=== PATIENT | male | born 1935 | race Caucasian/White ===

== ENCOUNTER 2016-12-14 11:16 | Inpatient (IN) | payer MEDICARE, BC ==
--- NOTE | 2016-12-09 10:04 | MH ---
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 PAST MEDICAL HISTORY 1. Triple bypass performed in 2010 along with a mitral valve replacement. 2. History of throat squamous cell carcinoma in 2011. 3. Tonsillectomy. 4. He has had several minor surgeries cancelled due to hypertension. 5. History of gout. 6. Hypertension. 7. Throat cancer radiation and chemotherapy 2011. MEDICATIONS Allopurinol twice daily. His primary care physician has taken him off and placed him back on hypertension medicine. Currently he is off of it. SOCIAL HISTORY He is retired, drinks alcohol occasionally, does not use tobacco. REVIEW OF SYSTEMS HEAD: No history of headaches. He does have occasional dizziness. No injury or seizure disorders. EYES: No history of bleeding, obstruction or discharge. He wears reading glasses. NOSE: No history of bleeding, obstruction or discharge. MOUTH: He has inability to chew with pathologic fracture of the left body of the mandible. THROAT: No history of hoarseness, soreness, thyroid disease, lymph nodes or buccal or general glandular enlargement. RESPIRATORY: No history of tuberculosis, shortness of breath, cough, COPD, asthma or sleep apnea. CARDIOVASCULAR: No history of pericardial pain. He does have a history of hypertension. He does have a significant history of heart murmur. He does not report any shortness of breath on exertion, edema, phlebitis or rheumatic fever. He had bypass surgery and mitral valve replacement in 2010. GASTROINTESTINAL: No gallbladder disease or peptic ulcer disease. GENITOURINARY: No urinary tract infections or kidney disease. MUSCULOSKELETAL: No pain, limitation of movement or muscular weakness. ENDOCRINE: No history of diabetes, hormone therapy, growth abnormality. HEMATOLOGIC: No history of anemia, bleeding tendencies, Rh incompatibility. Has no history of transfusion. He does report bruising easily. NEUROLOGIC: No sensory or motor disturbances. PHYSICAL EXAMINATION GENERAL: An alert and oriented male. VITAL SIGNS: He is 5 feet 7 inches, weighs 130 pounds. Blood pressure is 215/94. O2 sat is 100% on room air. Pulse 74 and regular. HEAD: Normocephalic. EYES: EOMs intact. PERRLA. NOSE: Septum in the midline. MOUTH: Marked deviation of his mandible to the left. 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 He does not currently have a cutaneous fistula but intraorally he does. History of Pseudomonas drainage from his intraoral opening. NECK: Supple. No thyroid enlargement. SKIN: The skin over the left side of his face is indurated status post radiation. CHEST: Clear to auscultation. He has a grade 3/6 systolic ejection murmur heard best in the mitral area. EXTREMITIES: Peripheral pulses are full and equal throughout. ABDOMEN: Soft. There are no masses or organomegaly present. He has a midline scar in an area where a feeding tube had been placed on the left abdominal wall. NEUROLOGIC: Cranial nerves II-XII intact with the exception of the third division of the fifth cranial nerve on the left. This has occurred along with osteoradionecrosis. Deep tendon reflexes are symmetric and physiologic. ASSESSMENT AND PLAN The patient has been informed of the need for resection of the left body of the mandible and placement of a locking reconstruction plate. The patient understands and accepts the treatment plan. SHERIE Banks /9:40 AM /9:54 AM
[~2016-12-14] VITALS: Ht 170.2 cm; Wt 63.0 kg
[2016-12-14] MEDS ORDERED: ONDANSETRON HCL 4 MG/2 ML VIAL IV PUSH ONE (12:00)
[2016-12-14] MEDS ORDERED: ePHEDrine/NS 25 MG/5 ML SYR IV ONE (12:00)
[2016-12-14] MEDS ORDERED: LACTATED RINGER'S 1000 ML INJ 1,000 ML IV ONE (12:00)
[2016-12-14] MEDS ORDERED: PROPOFOL 200 MG/20 ML AMP IV ONE (12:00)
[2016-12-14 12:30] VITALS: BP 198/80; PULSE 75; RESP 18; TEMP 98.1; O2SAT 100
[2016-12-14] MEDS ORDERED: METO50TA PO (12:39)
[2016-12-14] MEDS ORDERED: POVIDONE IODINE 5% (ANTISEPSIS KIT) 4 APPLICATIONS EACH NARE PRN (13:00)
[2016-12-14] MEDS ORDERED: ceFAZolin 1,000 MG/NS 100 ML IV SCH ×2 (13:00)
[2016-12-14] MEDS ORDERED: SODIUM CHLORID 0.9% 500 ML IV PRN (13:00)
[2016-12-14] MEDS ORDERED: LACTATED RINGER'S 1000 ML IV PRN (13:00)
[2016-12-14] MEDS ORDERED: INSULIN HUMAN REGULAR 1,000 UNITS/10 ML VIAL SQ PRN (13:00)
[2016-12-14] MEDS ORDERED: CHLORHEXIDINE GLUCONATE 2 % 1 PACK (2 CLOTHS) TOPICAL PRN (13:00)
[2016-12-14] MEDS ORDERED: METOPROLOL TARTRATE 25 MG TAB PO PRN (13:00)
[2016-12-14] MEDS ORDERED: LIDOCAINE 1%/EPINEPHrine 1:100,000 SOLN 20 ML VIAL ONE (13:32)
[2016-12-14] MEDS ORDERED: methylPREDNISolone SOD SUCC 125 MG/2 ML VIAL ONE (13:32)
[2016-12-14] MEDS ORDERED: BACITRACIN TOP OINT 15 GM TUBE ONE (13:32)
[2016-12-14] MEDS ORDERED: THROMBIN (TOPICAL) 5,000 UNIT VIAL ONE (13:32)
[2016-12-14] MEDS ORDERED: CHLORHEXIDINE GLUCONATE 0.12% 15 ML CUP ONE (13:36)
[2016-12-14] MEDS ORDERED: MICROFIBRILLAR COLLAGEN HEMOSTAT 70 X 35 MM BANDAGE ONE (14:52)
[2016-12-14] MEDS ORDERED: fentaNYL CITRATE 250 MCG/5 ML AMP ONE (17:02)
[2016-12-14] MEDS ORDERED: *LABETALOL HCL 100 MG/20 ML VIAL PERIprocedural Use ONLY ONE (17:08)
[2016-12-14] MEDS ORDERED: cloNIDine HCL 0.1 MG TAB ONE (17:17)
[2016-12-14] MEDS ORDERED: *morphine SULFATE 8 MG/ML PERIprocedure ONLY ONE ×2 (17:18→18:43)
--- NOTE | 2016-12-14 17:21 | PD.CONS ---
[facility] Requested By Reason for Consult medical management Primary Care Physician Tarun Mari MD Diagnoses: History of Present Illness patient is a 81 y/o male with history of CAD, hypertension, throat cancer with osteoradionecrosis complete deterioration of the left body of the mandible for which he underwent surgical repair. at the time of my evaluation he was in no acute distress. denies any chest pain, dizziness or headache. however his BP was noted to be significantly elevated at the time. patient was seen with the RN at the bedside. Review of Systems Constitutional: DENIES: Fever, Weight loss, Chills, Night Sweats Eyes: DENIES: Blurred vision, Diplopia, Vision loss, Double Vision Ears, nose, mouth, throat: DENIES: Tinnitus, Vertigo, Throat pain, Epistaxis Respiratory: DENIES: Apneas, Cough, Snoring, Wheezing, Hemoptysis, Sputum production, Shortness of breath Cardiovascular: DENIES: Chest pain, Palpitations, Syncope, Dyspnea on Exertion , PND, Lower Extremity Edema, Orthopnea, Claudication Gastrointestinal: DENIES: Abdominal pain, Black stools, Bloody stools, Constipation, Diarrhea, Nausea, Vomiting, Difficulty Swallowing, Anorexia Genitourinary: DENIES: Urinary frequency, Urgency, Hematuria, Dysuria Musculoskeletal: DENIES: Joint pain, Muscle aches, Stiffness, Joint Swelling Integumentary: DENIES: Rash Neurologic: DENIES: Abnormal gait, Headache, Localized weakness, Paresthesias, Seizures, Speech Problems, Tremor, Poor Balance Psychiatric: DENIES: Anxiety, Confusion, Mood changes, Depression, Hallucinations, Agitation, Suicidal Ideation, Homicidal Ideation, Delusions Past Family Social History Allergies: Coded Allergies: No Known Allergies (Unverified , 12/14/16) Past Medical History CAD mitral valve repair hypertension gout throat cancer Past Surgical History mitral valve surgery Reported Medications metoprolol Active Ordered Medications Current Medications Lactated Ringer's 1,000 ml @ 30 mls/hr Q24H PRN IV SEE LABEL COMMENTS Last administered on 12/14/16t 12:45; Start 12/14/16 at 13:00; Stop 12/17/16 at 12:59 Sodium Chloride (NS 500 ml Inj) 500 ml @ 30 mls/hr [id number] PRN IV SEE LABEL COMMENTS; Start 12/14/16 at 13:00; Stop 12/17/16 at 12:59 Metoprolol Tartrate (Lopressor) 25 mg BAND MAKER PRN PO SEE LABEL COMMENTS; Start 12/14/16 at 13:00; Stop 12/17/16 at 12:59 Povidone Iodine (Betadine 5% Antisepsis Kit) 1 applic BAND MAKER PRN EACH NARE SEE LABEL COMMENTS; Start 12/14/16 at 13:00; Stop 12/17/16 at 12:59 Chlorhexidine Gluconate (Chlorhexidine 2% Cloth) 3 pack BAND MAKER PRN TOPICAL SEE LABEL COMMENTS Last administered on 12/14/16 11:30; Start 12/14/16 at 13:00 ; Stop 12/17/16 at 12:59 Insulin Human Regular See Protocol Table ... BAND MAKER PRN SQ SEE PROTOCOL TABLE ; Start 12/14/16 at 13:00; Stop 12/17/16 at 12:59 Cefazolin Sodium/ Sodium Chloride (Ancef Inj/NS Inj) 100 ml @ 200 mls/hr BAND MAKER IV Last administered on 12/14/16 13:13; Start 12/14/16 at 13:00; Stop at 12:59 Thrombin (Thrombin Top Soln) 10,000 units STK-MED ONCE .ROUTE Last administered on 12/14/16 14:12; Start 12/14/16 at 13:32; Stop 12/14/16 at 13:33 ; Status DC Methylprednisolone Sodium Succinate (SoluMEDROL INJ) 125 mg STK-MED ONCE .ROUTE ; Start 12/14/16 at 13:32; Stop 12/14/16 at 13:33; Status DC Bacitracin (Baciguent Oint) 15 applic STK-MED ONCE .ROUTE Last administered on 12/14/16 16:31; Start 12/14/16 at 13:32; Stop 12/14/16 at 13:33; Status DC Lidocaine/ Epinephrine (Xylocaine-Epi 1%-1:100,000 Inj) 40 ml STK-MED ONCE .ROUTE Last administered on 12/14/16 14:12; Start 12/14/16 at 13:32; Stop at 13:33; Status DC Chlorhexidine Gluconate (Peridex 0.12% Liq) 45 ml STK-MED ONCE .ROUTE Last administered on 12/14/16t 16:00; Start 12/14/16 at 13:36; Stop 12/14/16 at 13:37 ; Status DC Microfibriller Collagen Hemostat (Avitene Bandage) 1 bandage STK-MED ONCE .ROUTE ; Start 12/14/16 at 14:52; Stop 12/14/16 at 14:53; Status DC Fentanyl Citrate (fentaNYL INJ) 500 mcg STK-MED ONCE .ROUTE ; Start 12/14/16 at 17:02; Stop 12/14/16 at 17:03; Status DC Labetalol HCl (*TRANDATE INJ PERIprocedural Use ONLY) 100 mg STK-MED ONCE .ROUTE ; Start 12/14/16 at 17:08; Stop 12/14/16 at 17:09; Status DC Clonidine (Catapres) 0.1 mg STK-MED ONCE .ROUTE ; Start 12/14/16 at 17:17; Stop 12/14/16 at 17:18; Status DC Family History not relevant to this consult. Social History doesn't smoke.drinks occasionally. Physical Exam Vital Signs Vital Signs Date Time Temp Pulse Resp B/P Pulse Ox O2 Delivery O2 Flow Rate FiO2 12/14/16 12:30 98.1 75 18 198/80 100 Physical Exam GENERAL: This is a well-nourished, well-developed patient, in no apparent distress. SKIN: No rashes, ecchymoses or lesions. Cool and dry. HEAD: covered with clean dressing. EYES: Pupils equal round and reactive. Extraocular motions intact. No scleral icterus. No injection or drainage. ENT: Nose without bleeding, purulent drainage or septal hematoma. Throat without erythema, tonsillar hypertrophy or exudate. Uvula midline. Airway patent. NECK: Trachea midline. No JVD or lymphadenopathy. Supple, nontender, no meningeal signs. CARDIOVASCULAR: Regular rate and rhythm without murmurs, gallops, or rubs. RESPIRATORY: Clear to auscultation. Breath sounds equal bilaterally. No wheezes , rales, or rhonchi. GASTROINTESTINAL: Abdomen soft, non-tender, nondistended. No hepato-splenomegaly , or palpable masses. No guarding. MUSCULOSKELETAL: Extremities without clubbing, cyanosis, or edema. No joint tenderness, effusion, or edema noted. No calf tenderness. Negative Homans sign bilaterally. NEUROLOGICAL: Awake and alert. Cranial nerves II through XII intact. Motor and sensory grossly within normal limits. Five out of 5 muscle strength in all muscle groups. Normal speech. Assessment and Plan Assessment and Plan A/P - osteoradionecrosis of the left mandible- s/p surgical repair continue with pain control- management per facial surgery -hypertensive urgency- received a dose of clonidine and labetalol- with some improvement resumed metoprolol- will add vasotec prn- will monitor and adjust the regimen as needed. -CAD/ s/p mitral valve repair- stable- f/u as outpatient thank you for the consult. Discussed Condition With the patient and RN. . Sunitha Hobson MD Dec 14, 2016 17:21
[2016-12-14] MEDS ORDERED: ENALAPRILAT 1.25 MG/ML VIAL ONE (17:31)
[2016-12-14] MEDS ORDERED: ENALAPRILAT 1.25 MG/ML VIAL IV PUSH PRN (18:00)
[2016-12-14] MEDS ORDERED: DO NOT ADM ANY ANTICOAGULANT DRUGS PRN (18:15)
[2016-12-14] MEDS ORDERED: MORPHINE SULFATE 4 MG/ML INJ IV PRN (18:15)
[2016-12-14] MEDS: DEXT 5%-NACL 0.45% 1000 ML INJ 1,000 ML IV SCH (18:15)
[2016-12-14] MEDS ORDERED: niCARdipine INJ 25 MG in SODIUM CHLOR 0.9% 250 ML INJ 250 ML IV SCH (19:00)
[2016-12-15] MEDS: DEXT 5%-NACL 0.45% 1000 ML INJ 1,000 ML IV SCH ×3 (02:35→21:58)
[2016-12-15] MEDS: ALLOPURINOL 300 MG TAB PO SCH (08:44)
[2016-12-15] MEDS: METOPROLOL SUCCINATE 25 MG EXTENDED RELEASE TAB PO SCH (08:45)
[2016-12-15 09:46] VITALS: BP 159/67; PULSE 64; RESP 17; TEMP 95.5; O2SAT 98
--- NOTE | 2016-12-15 11:24 | HHI.PR ---
Subjective Remarks resting comfortably with no distress. no chest pain or headache. BP has much improved. d/w the RN and no acute issues over night. Objective Vitals Vital Signs Date Time Temp Pulse Resp B/P Pulse Ox O2 Delivery O2 Flow Rate FiO2 12/15/16 09:46 95.5 64 17 159/67 98 12/15/16 09:30 97.4 Room Air 12/15/16 09:00 74 20 163/70 99 Room Air 12/15/16 07:00 97.5 98 20 173/81 99 Room Air 12/15/16 06:00 67 16 163/75 98 Room Air 12/15/16 04:15 70 18 155/72 98 Room Air 12/15/16 04:00 74 16 168/74 98 Room Air 12/15/16 03:16 69 16 158/94 97 Room Air 12/15/16 03:00 66 16 161/77 97 Room Air 12/15/16 02:00 96.9 65 20 139/72 97 Room Air 12/15/16 01:00 74 15 124/65 98 12/15/16 00:00 71 17 128/62 94 Nasal Cannula 2 12/14/16 23:00 72 16 138/65 95 Nasal Cannula 2 12/14/16 22:00 75 17 134/74 95 Nasal Cannula 2 12/14/16 21:00 78 15 130/62 97 Nasal Cannula 2 12/14/16 20:30 81 17 151/70 97 Nasal Cannula 2 12/14/16 20:15 98.2 79 17 146/67 94 Room Air 12/14/16 20:00 81 17 153/74 94 Room Air 12/14/16 19:45 82 17 156/72 98 Nasal Cannula 2 12/14/16 19:30 79 17 165/72 96 Nasal Cannula 2 12/14/16 19:15 77 17 202/94 97 Nasal Cannula 2 12/14/16 19:00 79 17 217/95 97 Nasal Cannula 2 12/14/16 18:45 78 16 198/96 97 Nasal Cannula 2 12/14/16 18:30 79 16 216/91 98 Nasal Cannula 2 12/14/16 18:15 77 16 188/91 97 Nasal Cannula 2 12/14/16 17:58 74 16 211/95 100 Nasal Cannula 2 12/14/16 17:45 79 15 189/86 100 Nasal Cannula 2 12/14/16 17:30 75 15 209/89 100 Nasal Cannula 2 12/14/16 17:15 79 17 100 Nasal Cannula 2 12/14/16 17:06 80 17 223/93 100 Nasal Cannula 3 12/14/16 17:00 78 17 215/98 100 Nasal Cannula 3 12/14/16 16:56 85 17 218/99 100 Nasal Cannula 3 12/14/16 16:50 96.7 92 16 231/95 100 Nasal Cannula 3 12/14/16 12:30 98.1 75 18 198/80 100 I/O 12/14/16 12/14/16 12/14/16 12/15/16 12/15/16 12/15/16 06:59 14:59 22:59 06:59 14:59 22:59 Intake Total 2640 ml 820 ml 754 ml Output Total 1400 ml 560 ml 200 ml Balance 1240 ml 260 ml 554 ml Intake Oral 240 ml IV Total 440 ml 820 ml 514 ml Other 2200 ml Output Urine Total 1150 ml 500 ml 200 ml Drainage Total 50 ml 60 ml 0 ml Estimated Blood Loss 200 ml Objective Remarks GENERAL: This is a well-nourished, well-developed patient, in no apparent distress. CARDIOVASCULAR: Regular rate and regular rhythm without murmurs, gallops, or rubs. RESPIRATORY: Clear to auscultation. Breath sounds equal bilaterally. No wheezes , rales, or rhonchi. GASTROINTESTINAL: Abdomen soft, non-tender, nondistended. Normal, active bowel sounds MUSCULOSKELETAL: Extremities without clubbing, cyanosis, or edema. NEURO: Alert & Oriented x4 to person, place, time, situation. Moves all ext x4 Medications and IVs Current Medications Lactated Ringer's 1,000 ml @ 30 mls/hr Q24H PRN IV SEE LABEL COMMENTS Last administered on 12/14/16t 12:45; Start 12/14/16 at 13:00; Stop 12/14/16 at 18:04 ; Status DC Sodium Chloride (NS 500 ml Inj) 500 ml @ 30 mls/hr [id number] PRN IV SEE LABEL COMMENTS; Start 12/14/16 at 13:00; Stop 12/14/16 at 18:04; Status DC Metoprolol Tartrate (Lopressor) 25 mg NEEDLE CONTROL CHENILLER PRN PO SEE LABEL COMMENTS; Start 12/14/16 at 13:00; Stop 12/14/16 at 18:04; Status DC Povidone Iodine (Betadine 5% Antisepsis Kit) 1 applic NEEDLE CONTROL CHENILLER PRN EACH NARE SEE LABEL COMMENTS; Start 12/14/16 at 13:00; Stop 12/14/16 at 18:04; Status DC Chlorhexidine Gluconate (Chlorhexidine 2% Cloth) 3 pack NEEDLE CONTROL CHENILLER PRN TOPICAL SEE LABEL COMMENTS Last administered on 12/14/16 11:30; Start 12/14/16 at 13:00 ; Stop 12/14/16 at 18:04; Status DC Insulin Human Regular See Protocol Table ... NEEDLE CONTROL CHENILLER PRN SQ SEE PROTOCOL TABLE ; Start 12/14/16 at 13:00; Stop 12/14/16 at 18:04; Status DC Cefazolin Sodium/ Sodium Chloride (Ancef Inj/NS Inj) 100 ml @ 200 mls/hr NEEDLE CONTROL CHENILLER IV Last administered on 12/14/16 13:13; Start 12/14/16 at 13:00; Stop at 18:04; Status DC Thrombin (Thrombin Top Soln) 10,000 units STK-MED ONCE .ROUTE Last administered on 12/14/16 14:12; Start 12/14/16 at 13:32; Stop 12/14/16 at 13:33 ; Status DC Methylprednisolone Sodium Succinate (SoluMEDROL INJ) 125 mg STK-MED ONCE .ROUTE ; Start 12/14/16 at 13:32; Stop 12/14/16 at 13:33; Status DC Bacitracin (Baciguent Oint) 15 applic STK-MED ONCE .ROUTE Last administered on 12/14/16 16:31; Start 12/14/16 at 13:32; Stop 12/14/16 at 13:33; Status DC Lidocaine/ Epinephrine (Xylocaine-Epi 1%-1:100,000 Inj) 40 ml STK-MED ONCE .ROUTE Last administered on 12/14/16 14:12; Start 12/14/16 at 13:32; Stop at 13:33; Status DC Chlorhexidine Gluconate (Peridex 0.12% Liq) 45 ml STK-MED ONCE .ROUTE Last administered on 12/14/16 16:00; Start 12/14/16 at 13:36; Stop 12/14/16 at 13:37 ; Status DC Microfibriller Collagen Hemostat (Avitene Bandage) 1 bandage STK-MED ONCE .ROUTE ; Start 12/14/16 at 14:52; Stop 12/14/16 at 14:53; Status DC Fentanyl Citrate (fentaNYL INJ) 500 mcg STK-MED ONCE .ROUTE ; Start 12/14/16 at 17:02; Stop 12/14/16 at 17:03; Status DC Labetalol HCl (*TRANDATE INJ PERIprocedural Use ONLY) 100 mg STK-MED ONCE .ROUTE Last administered on 12/14/16 17:08; Start 12/14/16 at 17:08; Stop at 17:09; Status DC Clonidine (Catapres) 0.1 mg STK-MED ONCE .ROUTE Last administered on 12/14/16 17:20; Start 12/14/16 at 17:17; Stop 12/14/16 at 17:18; Status DC Morphine Sulfate (*morphine INJ PERIprocedure ONLY) 8 mg STK-MED ONCE .ROUTE Last administered on 12/14/16 17:19; Start 12/14/16 at 17:18; Stop 12/14/16 at 17:19; Status DC Enalaprilat (Vasotec Inj) 1.25 mg Q8H PRN IV PUSH SBP> OR = 180, DBP> OR = 100 ; Start 12/14/16 at 18:00; Stop 12/14/16 at 18:04; Status DC Enalaprilat (Vasotec Inj) 1.25 mg STK-MED ONCE .ROUTE Last administered on 17:31; Start 12/14/16 at 17:31; Stop 12/14/16 at 18:52; Status DC Miscellaneous Information ALL NURSING DEPARTME... UNSCH PRN .XX SEE LABEL COMMENTS; Start 12/14/16 at 18:15; Stop 12/15/16 at 18:14 Dextrose/Sodium Chloride (D5W-1/2 NS 1000 ml Inj) 1,000 ml @ 120 mls/hr Q8H20M IV Last administered on 12/15/16 02:35; Start 12/14/16 at 18:15 Metoprolol Succinate (Toprol Xl) 25 mg DAILY PO Last administered on 12/15/16 08:45; Start 12/15/16 at 09:00 Allopurinol (Zyloprim) 300 mg DAILY PO ; Start 12/15/16 at 09:00 Morphine Sulfate (Morphine Inj) 2 mg Q3H PRN IV PAIN 6-10; Start 12/14/16 at 18 :15 Oxycodone HCl (Roxicodone) 7.5 mg Q4H PRN PO PAIN 1-5; Start 12/14/16 at 18:15 Morphine Sulfate 8 mg 8 mg STK-MED ONCE .ROUTE Last administered on 12/14/16 18:44; Start 12/14/16 at 18:43; Stop 12/14/16 at 18:44; Status DC Nicardipine HCl/ Sodium Chloride (Cardene Inj/NS 250 ml Inj) 260 ml @ 0 mls/hr TITRATE IV Last administered on 12/14/16 19:21; Start 12/14/16 at 19:00 Nicardipine HCl (Cardene Inj) 25 mg STK-MED ONCE .ROUTE ; Start 12/14/16 at 19: 07; Stop 12/14/16 at 19:08; Status DC A/P Assessment and Plan A/P - osteoradionecrosis of the left mandible- s/p surgical repair continue with pain control- management per facial surgery -hypertensive urgency-has resolved- off the Nicardipine drip since last night. resumed metoprolol- vasotec prn- will monitor and adjust the regimen as needed. -CAD/ s/p mitral valve repair- stable- f/u as outpatient Sunitha Hobson MD Dec 15, 2016 11:24
[2016-12-15] MEDS ORDERED: ENALAPRILAT 1.25 MG/ML VIAL IV PUSH PRN (11:30)
[2016-12-15 12:00] VITALS: BP 152/67; PULSE 78; RESP 17; TEMP 95.4; O2SAT 91
[2016-12-15 16:00] VITALS: BP 105/51; PULSE 69; RESP 17; TEMP 95.6; O2SAT 96
[2016-12-15 19:25] VITALS: O2SAT 96
[2016-12-15 20:00] VITALS: BP 106/59; PULSE 61; RESP 18; TEMP 97.8; O2SAT 96
[2016-12-16] VITALS: BP 132/60; PULSE 68; RESP 18; TEMP 96.6; O2SAT 95
[2016-12-16] MEDS: DEXT 5%-NACL 0.45% 1000 ML INJ 1,000 ML IV SCH ×3 (03:33→20:15)
[2016-12-16 08:00] VITALS: BP 121/57; PULSE 58; RESP 12; TEMP 96.6; O2SAT 96
[2016-12-16 08:22] VITALS: O2SAT 95
[2016-12-16] MEDS: METOPROLOL SUCCINATE 25 MG EXTENDED RELEASE TAB PO SCH (09:00)
--- NOTE | 2016-12-16 10:02 | HHI.PR ---
Subjective Remarks resting comfortably with no distress. pain is controlled. BP has much improved. Objective Vitals Vital Signs Date Time Temp Pulse Resp B/P Pulse Ox O2 Delivery O2 Flow Rate FiO2 12/16/16 08:00 96.6 58 12 121/57 96 12/16/16 04:00 Room Air 12/16/16 00:00 96.6 68 18 132/60 95 12/16/16 00:00 Room Air 12/15/16 20:00 Room Air 12/15/16 20:00 97.8 61 18 106/59 96 12/15/16 19:25 96 21 12/15/16 16:00 95.6 69 17 105/51 96 12/15/16 12:00 95.4 78 17 152/67 91 12/15/16 12:00 95.4 78 17 152/67 91 I/O 12/15/16 12/15/16 12/15/16 12/16/16 12/16/16 12/16/16 07:00 15:00 23:00 07:00 15:00 23:00 Intake Total 820 ml 1829 ml 925 ml 1001 ml Output Total 560 ml 715 ml 470 ml 660 ml Balance 260 ml 1114 ml 455 ml 341 ml Intake Oral 720 ml IV Total 820 ml 1109 ml 925 ml 1001 ml Output Urine Total 500 ml 675 ml 450 ml 650 ml Drainage Total 60 ml 40 ml 20 ml 10 ml # Bowel Movements 0 0 Objective Remarks GENERAL: This is a well-nourished, well-developed patient, in no apparent distress. CARDIOVASCULAR: Regular rate and regular rhythm without murmurs, gallops, or rubs. RESPIRATORY: Clear to auscultation. Breath sounds equal bilaterally. No wheezes , rales, or rhonchi. GASTROINTESTINAL: Abdomen soft, non-tender, nondistended. Normal, active bowel sounds MUSCULOSKELETAL: Extremities without clubbing, cyanosis, or edema. NEURO: Alert & Oriented x4 to person, place, time, situation. Moves all ext x4 Medications and IVs Current Medications Lactated Ringer's 1,000 ml @ 30 mls/hr Q24H PRN IV SEE LABEL COMMENTS Last administered on 12/14/16t 12:45; Start 12/14/16 at 13:00; Stop 12/14/16 at 18:04 ; Status DC Sodium Chloride (NS 500 ml Inj) 500 ml @ 30 mls/hr [id number] PRN IV SEE LABEL COMMENTS; Start 12/14/16 at 13:00; Stop 12/14/16 at 18:04; Status DC Metoprolol Tartrate (Lopressor) 25 mg SKIN THERAPIST PRN PO SEE LABEL COMMENTS; Start 12/14/16 at 13:00; Stop 12/14/16 at 18:04; Status DC Povidone Iodine (Betadine 5% Antisepsis Kit) 1 applic SKIN THERAPIST PRN EACH NARE SEE LABEL COMMENTS; Start 12/14/16 at 13:00; Stop 12/14/16 at 18:04; Status DC Chlorhexidine Gluconate (Chlorhexidine 2% Cloth) 3 pack SKIN THERAPIST PRN TOPICAL SEE LABEL COMMENTS Last administered on 12/14/16 11:30; Start 12/14/16 at 13:00 ; Stop 12/14/16 at 18:04; Status DC Insulin Human Regular See Protocol Table ... SKIN THERAPIST PRN SQ SEE PROTOCOL TABLE ; Start 12/14/16 at 13:00; Stop 12/14/16 at 18:04; Status DC Cefazolin Sodium/ Sodium Chloride (Ancef Inj/NS Inj) 100 ml @ 200 mls/hr SKIN THERAPIST IV Last administered on 12/14/16 13:13; Start 12/14/16 at 13:00; Stop at 18:04; Status DC Thrombin (Thrombin Top Soln) 10,000 units STK-MED ONCE .ROUTE Last administered on 12/14/16 14:12; Start 12/14/16 at 13:32; Stop 12/14/16 at 13:33 ; Status DC Methylprednisolone Sodium Succinate (SoluMEDROL INJ) 125 mg STK-MED ONCE .ROUTE ; Start 12/14/16 at 13:32; Stop 12/14/16 at 13:33; Status DC Bacitracin (Baciguent Oint) 15 applic STK-MED ONCE .ROUTE Last administered on 12/14/16 16:31; Start 12/14/16 at 13:32; Stop 12/14/16 at 13:33; Status DC Lidocaine/ Epinephrine (Xylocaine-Epi 1%-1:100,000 Inj) 40 ml STK-MED ONCE .ROUTE Last administered on 12/14/16 14:12; Start 12/14/16 at 13:32; Stop at 13:33; Status DC Chlorhexidine Gluconate (Peridex 0.12% Liq) 45 ml STK-MED ONCE .ROUTE Last administered on 12/14/16 16:00; Start 12/14/16 at 13:36; Stop 12/14/16 at 13:37 ; Status DC Microfibriller Collagen Hemostat (Avitene Bandage) 1 bandage STK-MED ONCE .ROUTE ; Start 12/14/16 at 14:52; Stop 12/14/16 at 14:53; Status DC Fentanyl Citrate (fentaNYL INJ) 500 mcg STK-MED ONCE .ROUTE ; Start 12/14/16 at 17:02; Stop 12/14/16 at 17:03; Status DC Labetalol HCl (*TRANDATE INJ PERIprocedural Use ONLY) 100 mg STK-MED ONCE .ROUTE Last administered on 12/14/16 17:08; Start 12/14/16 at 17:08; Stop at 17:09; Status DC Clonidine (Catapres) 0.1 mg STK-MED ONCE .ROUTE Last administered on 12/14/16 17:20; Start 12/14/16 at 17:17; Stop 12/14/16 at 17:18; Status DC Morphine Sulfate (*morphine INJ PERIprocedure ONLY) 8 mg STK-MED ONCE .ROUTE Last administered on 12/14/16 17:19; Start 12/14/16 at 17:18; Stop 12/14/16 at 17:19; Status DC Enalaprilat (Vasotec Inj) 1.25 mg Q8H PRN IV PUSH SBP> OR = 180, DBP> OR = 100 ; Start 12/14/16 at 18:00; Stop 12/14/16 at 18:04; Status DC Enalaprilat (Vasotec Inj) 1.25 mg STK-MED ONCE .ROUTE Last administered on 17:31; Start 12/14/16 at 17:31; Stop 12/14/16 at 18:52; Status DC Miscellaneous Information ALL NURSING DEPARTME... UNSCH PRN .XX SEE LABEL COMMENTS; Start 12/14/16 at 18:15; Stop 12/15/16 at 18:14; Status DC Dextrose/Sodium Chloride (D5W-1/2 NS 1000 ml Inj) 1,000 ml @ 120 mls/hr Q8H20M IV Last administered on 12/16/16 03:33; Start 12/14/16 at 18:15 Metoprolol Succinate (Toprol Xl) 25 mg DAILY PO Last administered on 12/15/16 08:45; Start 12/15/16 at 09:00 Allopurinol (Zyloprim) 300 mg DAILY PO ; Start 12/15/16 at 09:00 Morphine Sulfate (Morphine Inj) 2 mg Q3H PRN IV PAIN 6-10; Start 12/14/16 at 18 :15 Oxycodone HCl (Roxicodone) 7.5 mg Q4H PRN PO PAIN 1-5; Start 12/14/16 at 18:15 Morphine Sulfate 8 mg 8 mg STK-MED ONCE .ROUTE Last administered on 12/14/16 18:44; Start 12/14/16 at 18:43; Stop 12/14/16 at 18:44; Status DC Nicardipine HCl/ Sodium Chloride (Cardene Inj/NS 250 ml Inj) 260 ml @ 0 mls/hr TITRATE IV Last administered on 12/14/16 19:21; Start 12/14/16 at 19:00 Nicardipine HCl (Cardene Inj) 25 mg STK-MED ONCE .ROUTE ; Start 12/14/16 at 19: 07; Stop 12/14/16 at 19:08; Status DC Enalaprilat 1.25 mg 1.25 mg Q8H PRN IV PUSH SBP> OR = 180, DBP> OR = 100; Start 12/15/16 at 11:30 Cefazolin Sodium/ Sodium Chloride (Ancef Inj/NS Inj) 100 ml @ 200 mls/hr Q8H IV ; Start 12/16/16 at 09:00 A/P Assessment and Plan A/P - osteoradionecrosis of the left mandible- s/p surgical repair continue with pain control- management per facial surgery -hypertensive urgency-has resolved- BP has much improved. resumed metoprolol- -CAD/ s/p mitral valve repair- stable- f/u as outpatient Discharge Planning dc planning per facial surgery. Sunitha Hobson MD Dec 16, 2016 10:02
[2016-12-16] MEDS ORDERED: OXYC-392 PO (10:03)
--- NOTE | 2016-12-16 10:27 | MP ---
cc: SHARMIN JOHNSON D.D.S. DATE OF SURGERY 12/14/2016 DATE OF 1935 PREOPERATIVE DIAGNOSIS 1. 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 2. Malocclusion POSTOPERATIVE DIAGNOSIS 1. 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 2. Malocclusion PROCEDURE PERFORMED 1. Resection of mandible 2. Placement reconstruction plate 3. Cervical advancement flap 4. Placement of closed reduction of mandible to start the case with use of IV loops. SURGEONS Naila and Vitaliy ANESTHESIA General anesthesia via nasoendotracheal tube SPECIMEN Left mandible that was sent COMPLICATIONS None BLOOD LOSS 200 cc IV FLUIDS 2000 cc of crystalloid JUSTIFICATION Mr. Mejia is a gentleman who is [id number] who has been a patient of Dr. Burks for some time. He has had subsequent extensive radiation over 7000 centigray to his left mandible. After an extraction, he subsequently was unable to heal. He underwent multiple, over 40, hyperbaric oxygen dyes, continued to deteriorate and subsequently has a pathologic fracture with extensive pain in the left mandible. Plan to take him to the operating room for resection/reconstruction plate, flap and then get him for some postoperative dyes once he has completed to try to help with some blood supply and healing. PROCEDURE NOTE On the 12/14, he presented to the holding area where he was identified by his name and his bracelet. He was brought back to OR where he was intubated nasally by anesthesia. He was then prepped and draped in a sterile fashion. Local anesthesia was given with 1% Xylocaine with 1000 epinephrine, a total of 10 cc in the neck region. IV loops were placed reduced the patient's bite as best as possible. Initial incision made in the neck with a 15 blade about 2 centimeter below the angle of the mandible going from the midline all the way up to the corner of the ear on the left side, dissect through skin, subcutaneous tissue, through platysma, through the cervical layer and the superficial layer of the fascia. Due to his heavy radiation, unable to really identify the layers in the neck very well. I dissected down to the strap muscle anteriorly and underneath what used to be a gland posteriorly. No real bleeders from his facial artery or vein due to atrophy from the radiation, just small peripheral bleeders. Dissected down the mandible showing a fracture and deal osteonecrotic tissue in the mandibular area. Resection of the bone was done leaving a gap of about 4 cm. Irrigation done with copious amounts of saline, placement of the reconstruction plate on there to put four holes in the proximal and four holes in the distal segment. This was done using 9-mm screws in the proximal segment, 11 mm screws in the distal segment to reduce it back. Again, a drain was placed with a 10 flat AZALIA drain, suturing done deep with 3-0 Vicryl and closure of the skin with horizontal mattress sutures of 3-0 Prolene and sutured the drain with a 2-0 silk suture. Intraorally, closure done with a 4-0 Vicryl suture, removal of the IV loops and the throat pack that was in for closure there. I used a platelet rich and platelet poor plasma in the neck area that was drawn prior to case for some growth factors. The patient tolerated the procedure well. A dressing was placed and he was taken to the cover with vital signs stable. SHERIE Fried /4:09 PM /10:09 AM
[2016-12-16] MEDS: ALLOPURINOL 300 MG TAB PO SCH (10:32)
[2016-12-16] MEDS: ceFAZolin 1,000 MG/NS 100 ML IV SCH ×4 (10:33→17:00)
[2016-12-16 12:00] VITALS: BP 147/66; PULSE 68; RESP 16; TEMP 97.7; O2SAT 95
[2016-12-16 16:00] VITALS: BP 133/60; PULSE 90; RESP 20; TEMP 98.8; O2SAT 94
[2016-12-16 20:27] VITALS: BP 139/61; PULSE 77; RESP 18; TEMP 97.3; O2SAT 98
[2016-12-16 21:03] LABS: AUTOMATED NEUTROPHIL # 10.4 TH/MM3 (1.8-7.7); BASOPHIL % 0.1 % (0.0-2.0); EOSINOPHIL # 0.1 TH/MM3 (0-0.4); EOSINOPHIL % 0.7 % (0.0-4.0); HEMATOCRIT 34.4 % (39.0-51.0); HEMO FLAGS DIFF FINAL; LYMPH % 4.9 % (9.0-44.0); LYMPHOCYTE # 0.6 TH/MM3 (1.0-4.8); MEAN CELL VOLUME 88.6 FL (80.0-100.0); MEAN CORPUSCULAR HEMOGLOBIN 28.8 PG (27.0-34.0); MEAN CORPUSCULAR HGB CONC 32.5 % (32.0-36.0); MONO % 5.3 % (0.0-8.0); PLATELET COUNT 130 TH/MM3 (150-450); RED BLOOD COUNT 3.88 MIL/MM3 (4.50-5.90); RED CELL DISTRIBUTION WIDTH 16.1 % (11.6-17.2); WHITE BLOOD COUNT 11.7 TH/MM3 (4.0-11.0)
[2016-12-16 21:14] LABS: BICARBONATE 20.1 MEQ/L (21.0-32.0); POTASSIUM 4.2 MEQ/L (3.5-5.1)
[2016-12-17] VITALS: BP 123/60; PULSE 72; RESP 18; TEMP 98.1; O2SAT 96
[2016-12-17] MEDS: ceFAZolin 1,000 MG/NS 100 ML IV SCH ×4 (01:14→10:38)
[2016-12-17] MEDS: DEXT 5%-NACL 0.45% 1000 ML INJ 1,000 ML IV SCH ×3 (03:37→20:02)
[2016-12-17 08:00] VITALS: BP 110/56; PULSE 80; RESP 20; TEMP 97.3; O2SAT 97
[2016-12-17] MEDS ORDERED: diphenhydrAMINE HCL ELIXIR 12.5 MG/5 ML CUP PO ONE (08:00)
[2016-12-17] MEDS: METOPROLOL SUCCINATE 25 MG EXTENDED RELEASE TAB PO SCH (09:00)
[2016-12-17] MEDS ORDERED: PERI0.126 SWISH-SPIT (10:33)
--- NOTE | 2016-12-17 10:36 | HHI.DS ---
Discharge Summary Admission Date Dec 15, 2016 at 00:44 Discharge Date: Dec 17, 2016 Admitting Diagnosis (1) HTN (hypertension) ICD Code: I10 Diagnosis: Principal (2) Osteoradionecrosis of mandible ICD Code: M27.2 Diagnosis: Principal Procedures ORIF left mandible Brief History - From Admission patient is a 81 y/o male with history of CAD, hypertension, throat cancer with osteoradionecrosis complete deterioration of the left body of the mandible for which he underwent surgical repair. at the time of my evaluation he was in no acute distress. denies any chest pain, dizziness or headache. however his BP was noted to be significantly elevated at the time. patient was seen with the RN at the bedside. CBC/BMP: 12/16/16201812/16/162018 Significant Findings Laboratory Tests Test 12/16/16 20:19 White Blood Count 11.7 TH/MM3 (4.0-11.0) Red Blood Count 3.88 MIL/MM3 (4.50-5.90) Hemoglobin 11.2 GM/DL (13.0-17.0) Hematocrit 34.4 % (39.0-51.0) Platelet Count 130 TH/MM3 (150-450) Mean Platelet Volume 6.9 FL (7.0-11.0) Neutrophils (%) (Auto) 89.0 % (16.0-70.0) Lymphocytes (%) (Auto) 4.9 % (9.0-44.0) Neutrophils # (Auto) 10.4 TH/MM3 (1.8-7.7) Lymphocytes # (Auto) 0.6 TH/MM3 (1.0-4.8) Sodium Level 132 MEQ/L (136-145) Carbon Dioxide Level 20.1 MEQ/L (21.0-32.0) Blood Urea Nitrogen 23 MG/DL (7-18) Estimat Glomerular Filtration 59 ML/MIN (>89) Rate Random Glucose 122 MG/DL (74-106) Calcium Level 8.1 MG/DL (8.5-10.1) PE at Discharge GENERAL: This is a well-nourished, well-developed patient, in no apparent distress. CARDIOVASCULAR: Regular rate and regular rhythm with 2/6 JERE RESPIRATORY: Clear to auscultation. Breath sounds equal bilaterally. No wheezes GASTROINTESTINAL: Abdomen soft, non-tender, nondistended. Normal, active bowel sounds MUSCULOSKELETAL: Left arm swelling noted. non tender, no obvious erythema NEURO: Alert & Oriented. Moves all ext x4 Pt update on day of discharge Pt feels well. Some sore throat but no pain. Tolerating liquid diet. daughter at bedside. concerned about left arm swelling started yesterday but left more Hospital Course - osteoradionecrosis of the left mandible- s/p surgical repair continue with pain control- management/abx per facial surgery. script for Z- pack in chart by sx. full liquid diet. -hypertensive urgency-has resolved- BP has much improved. f/u w PCP in 2-3 days for BP check continue metoprolol- Left arm swelling- get left arm u/s, if neg, ok to d/c home if positive he has been cleared by sx to start anticoag if needed. -CAD/ s/p mitral valve repair- stable- f/u as outpatient Pt Condition on Discharge: Stable Discharge Instructions DIET: Follow Instructions for: Heart Healthy Diet Additional Diet Instructions: full liquid diet Activities you can perform: Regular-No Restrictions Follow up Referrals: Oral Maxillary Surgery - 12/22/16 PCP Follow-up - 2-3 Days New Medications: Chlorhexidine Gluconate (Mouth) Liq (Peridex Liq) 0.12% Soln 15 ML SWISH-SPIT BID #473 Ref 0 ML Oxycodone (Oxycodone) 5 Mg Tab 7.5 MG PO Q4H PRN pain #15 Ref 0 TAB Continued Medications: Metoprolol Tartrate (Metoprolol Tartrate) 50 Mg Tab 50 MG PO DAILY #30 Ref 0 TAB Yesika Garcia MD Dec 17, 2016 10:36 Yesika Garcia MD Dec 17, 2016 10:36
[2016-12-17] MEDS: ALLOPURINOL 300 MG TAB PO SCH (10:38)
--- NOTE | 2016-12-17 10:48 | HHI.PR ---
Subjective Remarks pod 3 s/p resection of left mandible, placement of reconstruction plate and cervical advancement flap aaox3 nad, ambulating/voiding/ tolerating po left arm edema > right - s/p - ancef - Benadryl given, denies any facial/neck/ arm pain daughter at bedside Objective Vital Signs Date Time Temp Pulse Resp B/P Pulse Ox O2 Delivery O2 Flow Rate FiO2 12/17/16 08:00 97.3 80 20 110/56 97 12/17/16 00:00 98.1 72 18 123/60 96 12/16/16 20:27 97.3 77 18 139/61 98 12/16/16 16:00 98.8 90 20 133/60 94 12/16/16 12:00 97.7 68 16 147/66 95 I/O 12/16/16 12/16/16 12/16/16 12/17/16 12/17/16 12/17/16 06:59 14:59 22:59 06:59 14:59 22:59 Intake Total 1001 ml 2354 ml 181 ml 100 ml Output Total 660 ml 50 ml 500 ml 200 ml Balance 341 ml 2304 ml -319 ml -100 ml Intake Oral 1290 ml IV Total 1001 ml 1064 ml 181 ml 100 ml Output Urine Total 650 ml 50 ml 500 ml 200 ml Drainage Total 10 ml # Voids 5 3 # Bowel Movements 1 Result Diagram: 12/16/16201812/16/162018 Objective Remarks all wound margins well approximated , sutures intact neck dressing in place no signs of infection bleeding pus edema all wound margins well approximated, sutures intact tissues pink/well perfused, no intraoral communication noted wound sites hemostatic no elevation floor of mouth/tongue Assessment and Plan Assessment and Plan pod 3 s/p resection of left mandible, placement of reconstruction plate and cervical advancement flap planned ultrasound for arm ok to d/c to home form OMS standpoint f/up dr hartman next week full liquid diet can shower in 2 days sleep head elevated 30 degrees no strenuous activity/exercises rx z pack pt has outpatient appt for hbo wed 12/20/16 Onel Fisher DMD Dec 17, 2016 10:48
[2016-12-17 12:00] VITALS: BP 142/62; PULSE 62; RESP 18; TEMP 98.2; O2SAT 95
--- NOTE | 2016-12-17 12:11 | RADRPT ---
EXAM DATE/TIME: 12/17/2016 11:01 [facility] COMPARISON: No previous studies available for comparison. INDICATIONS : Left arm swelling. MEDICAL HISTORY : Hypertension. Carcinoma, throat. Syncope. Gout. Carcinoma, squamous. Chemotherapy. SURGICAL HISTORY : CABG Cardiac bypass. Port removal. Right rotator cuff repair. ENCOUNTER: Initial ACUITY: 1 day PAIN SCORE: 0/10 LOCATION: Left arm. FINDINGS: There is nonocclusive thrombus in the basalic and brachial vein. Cephalic vein is not visualized. S oft tissue swelling is evident. Interval jugular is not seen because of bandage. CONCLUSION: Nonocclusive thrombus as described above. Jovanni Cid MD FACR on December 17, 2016 at 12:08 Board Certified Radiologist. This report was verified electronically.
--- NOTE | 2016-12-17 13:41 | HHI.PR ---
Subjective Remarks Pt seen around 10:36 today Objective Vitals Vital Signs Date Time Temp Pulse Resp B/P Pulse Ox O2 Delivery O2 Flow Rate FiO2 12/17/16 12:00 98.2 62 18 142/62 95 12/17/16 08:00 97.3 80 20 110/56 97 12/17/16 00:00 98.1 72 18 123/60 96 12/16/16 20:27 97.3 77 18 139/61 98 12/16/16 16:00 98.8 90 20 133/60 94 I/O 12/16/16 12/16/16 12/16/16 12/17/16 12/17/16 12/17/16 07:00 15:00 23:00 07:00 15:00 23:00 Intake Total 1001 ml 2354 ml 181 ml 100 ml Output Total 660 ml 50 ml 500 ml 200 ml Balance 341 ml 2304 ml -319 ml -100 ml Intake Oral 1290 ml IV Total 1001 ml 1064 ml 181 ml 100 ml Output Urine Total 650 ml 50 ml 500 ml 200 ml Drainage Total 10 ml # Voids 5 3 # Bowel Movements 1 Result Diagram: 12/16/16201812/16/162018 Objective Remarks GENERAL: This is a well-nourished, well-developed patient, in no apparent distress. CARDIOVASCULAR: Regular rate and regular rhythm with 2/6 JERE RESPIRATORY: Clear to auscultation. Breath sounds equal bilaterally. No wheezes GASTROINTESTINAL: Abdomen soft, non-tender, nondistended. Normal, active bowel sounds MUSCULOSKELETAL: Left arm swelling noted. non tender, no obvious erythema NEURO: Alert & Oriented. Moves all ext x4 Procedures ORIF left mandible A/P Problem List: (1) HTN (hypertension) ICD Code: I10 Status: Acute (2) Osteoradionecrosis of mandible ICD Code: M27.2 Status: Acute Assessment and Plan - osteoradionecrosis of the left mandible- s/p surgical repair continue with pain control- management/abx per facial surgery. script for Z- pack in chart by sx. full liquid diet. d/c ancef but will start azithromycin per Oral sx recs -hypertensive urgency-has resolved- BP has much improved. f/u w PCP in 2-3 days for BP check upon discharge continue metoprolol- Left arm swelling- left arm u/s shows non occlusive thrombus of the basilic and brachial veins. Will start him on heparin gtt. will get hematology consult for recs regarding choice and length of anticoagulation use. I did discuss w Dr. Fisher and Pt was cleared by him to be started if u/s was positive for DVT. -CAD/ s/p mitral valve repair- stable- f/u as outpatient Discharge Planning awaiting hematology consult started on heparin gtt. monitor H&H closely. hold discharge Yesika Garcia MD Dec 17, 2016 13:41
[2016-12-17] MEDS ORDERED: HEPARIN-D5W INJ 250 ML IV SCH (13:45)
[2016-12-17 15:05] LABS: HEMATOCRIT 31.5 % (39.0-51.0); MEAN CELL VOLUME 85.1 FL (80.0-100.0); MEAN CORPUSCULAR HEMOGLOBIN 28.1 PG (27.0-34.0); PLATELET COUNT 112 TH/MM3 (150-450); RED CELL DISTRIBUTION WIDTH 15.5 % (11.6-17.2); REVIEW FLAG FINAL; WHITE BLOOD COUNT 9.5 TH/MM3 (4.0-11.0)
[2016-12-17 16:00] VITALS: BP 172/75; PULSE 85; RESP 16; TEMP 99.4; O2SAT 97
[2016-12-17 20:00] VITALS: BP 140/67; PULSE 80; RESP 20; TEMP 99.9; O2SAT 96
--- NOTE | 2016-12-17 21:21 | MB ---
cc: MATT MAGAÑA M.D. DATE OF CONSULTATION: 12/17/2016 REASON FOR CONSULTATION: Venous thrombosis of the left arm. PATIENT PROFILE: The patient is an 81-year-old white male. He is a . He lives alone. He is independent. He has three children, two daughters and a son. He was born in [place], [place]. He stopped smoking 15 years ago and previously smoked a pack of cigarettes per day. He has one or two drinks per day. 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 He was treated with surgery followed by chemotherapy and radiation at the [facility] in [place], [place]. Subsequent to his treatment, he developed osteonecrosis of the mandible. He has had no recurrence of the cancer. On 12/14/2016, he had resection of the mandible and placement of a reconstruction plate for osteoradionecrosis. The patient was going to be discharged today. He was noted to have swelling of the left arm and for this reason had an ultrasound done of the left arm. There was a nonocclusive thrombus in the basilic and brachial veins. The cephalic vein was not visualized. There was soft tissue swelling evident. The internal jugular was not seen because of a bandage. The patient has been started on IV heparin. He is doing well. He has had no bleeding since starting the heparin other than coughing up a few flecks of blood but this has not been sustained. PAST SURGICAL HISTORY: 1. In 2006, coronary artery bypass grafting surgery and placement of a pig valve. 2. In May of 2010, surgery for cancer of the tongue at [facility] in [place], [place] followed by radiation therapy and chemotherapy. 3. Tonsillectomy. 4. Rotator cuff repair. 5. Cataract surgery, left eye. 6. On 12/14/2016, resection of mandible, placement of reconstruction plate and cervical advancement flap by Drs. Yoo and Vitaliy. PAST MEDICAL HISTORY: 1. Coronary artery disease and mitral valve disease with bypass surgery and placement of a pig valve in 2006. 2. Osteonecrosis of the mandible. 3. Gout. MEDICATIONS PRIOR TO ADMISSION: 1. Metoprolol 50 milligrams a day. 2. Oxycodone. ALLERGIES: NO KNOWN ALLERGIES. FAMILY HISTORY: Unremarkable. REVIEW OF SYSTEMS: No problems with vision or hearing. No chest pain. No shortness of breath. GI notable for weight loss due to difficulty eating and swallowing. - no dysuria or frequency but stream is poor. Musculoskeletal - no bone pain. Neurologic - no weakness. LABORATORY STUDIES: On 12/16, hemoglobin 11.2, white count 11,600, platelets 130,000. Lytes, BUN and creatinine are notable for a slightly low sodium of 132. PHYSICAL EXAMINATION: GENERAL: The physical exam reveals a pleasant gentleman. His speech is slightly garbled from his previous surgeries but nevertheless, he communicates effectively. He is not able to open his mouth completely. VITAL SIGNS: Blood pressure 170/70, respiratory rate 16, pulse 80 afebrile, 02 sat 97%. HEAD, EYES, EARS, NOSE, THROAT AND NECK: The head and neck area shows recent surgery with a bandage over the submandibular / submental area. LYMPHATIC: There is no cervical, supraclavicular, axillary adenopathy. HEART: Regular rhythm. LUNGS: Clear. ABDOMEN: Abdomen without hepatosplenomegaly. EXTREMITIES: +1 edema of the left arm. Trace edema right arm. ASSESSMENT: The patient is an 81-year-old male who developed a deep venous thrombosis involving the left upper arm, which includes the basilic and brachial veins. I believe this is due to the fact that he had an IV in the left arm as well as a partial immobilization due to recent surgery. RECOMMENDATIONS: I would recommend that he receive apixaban 5 milligrams p.o. twice a day for 12 weeks and then the apixaban can be stopped. This is a provoked venous thrombosis due to his current circumstances. He is currently on IV heparin. The heparin can be stopped tomorrow and the apixaban can be started. Due to the recent surgery, I would not give him the full dose of anticoagulation for the first week, which is 10 milligrams p.o. twice a day to be followed by 5 milligrams p.o. twice a day. The situation was discussed with the patient and his daughter, and I called the attending physician, Dr. Garcia, and reviewed my recommendations with her. Tomorrow, if all is well, he will be switched to apixaban 5 milligrams p.o. twice a day and discharged later in the afternoon. He will follow up with his primary care physician and I have recommended only 12 weeks of treatment. MD LILLIANA Crum/AGNIESZKA /8:53 PM /9:02 PM AYAKA
[2016-12-17 21:48] LABS: APTT (PATIENT) 45.2 SEC (24.3-30.1); INTERNATIONAL NORMALIZED RATIO 1.1 RATIO
[2016-12-18] VITALS: BP 177/72; PULSE 83; RESP 20; TEMP 98.8; O2SAT 96
[2016-12-18 04:00] VITALS: BP 183/79; PULSE 85; RESP 18; TEMP 96.9; O2SAT 98
[2016-12-18 04:21] LABS: APTT (PATIENT) 50.4 SEC (24.3-30.1)
[2016-12-18] MEDS: DEXT 5%-NACL 0.45% 1000 ML INJ 1,000 ML IV SCH (04:48)
[2016-12-18] MEDS ORDERED: APIX5TAB PO (07:46)
[2016-12-18 08:00] VITALS: BP 199/81; PULSE 83; RESP 16; TEMP 96.5; O2SAT 97
[2016-12-18 08:49] LABS: HEMATOCRIT 31.3 % (39.0-51.0); REVIEW FLAG FINAL
[2016-12-18 09:00] LABS: APTT (PATIENT) 50.8 SEC (24.3-30.1)
[2016-12-18] MEDS ORDERED: AZITHROMYCIN 250 MG TAB PO SCH (09:00)
[2016-12-18] MEDS: METOPROLOL SUCCINATE 25 MG EXTENDED RELEASE TAB PO SCH (09:37)
[2016-12-18] MEDS: ALLOPURINOL 300 MG TAB PO SCH (09:37)
[2016-12-18] MEDS ORDERED: APIXABAN 5 MG TABLET PO SCH (10:00)
[2016-12-18] MEDS ORDERED: diphenhydrAMINE HCL ELIXIR 12.5 MG/5 ML CUP PO PRN (10:30)
--- NOTE | 2016-12-18 10:38 | HHI.PR ---
Subjective Remarks Pt states that he was itchy and has hives on his back and chest but after putting some lotion and the itchiness has resolved. Pt states "i'm going home today". Pt also states that he gets hives at random and doesn't know what causes them. Pt's daughter also states that she gets them and there is a strong family hx of hives in the family. Per daughter, they were present since yesterday. Pt denies any throat closing or any worsening tongue swelling. Pt denies any respiratory issues at this time. Denies any CP/sob/n/v Pt states that his BPs are very labile. Objective Vitals Vital Signs Date Time Temp Pulse Resp B/P Pulse Ox O2 Delivery O2 Flow Rate FiO2 12/18/16 08:00 96.5 83 16 199/81 97 12/18/16 04:00 96.9 85 18 183/79 98 12/18/16 00:00 98.8 83 20 177/72 96 12/17/16 20:00 99.9 80 20 140/67 96 12/17/16 16:00 99.4 85 16 172/75 97 12/17/16 12:00 98.2 62 18 142/62 95 I/O 12/17/16 12/17/16 12/17/16 12/18/16 12/18/16 12/18/16 07:00 15:00 23:00 07:00 15:00 23:00 Intake Total 100 ml 900 ml 330 ml 65 ml Output Total 200 ml 250 ml 200 ml Balance -100 ml 650 ml 130 ml 65 ml Intake Oral 900 ml 240 ml IV Total 100 ml 0 ml 90 ml 65 ml Output Urine Total 200 ml 250 ml 200 ml # Voids 3 2 # Bowel Movements 0 Result Diagram: 12/18/16 0824 12/16/16 2019 Imaging Last Impressions Upper Extremity Ultrasound 12/17/16 0000 Signed Impressions: Service Date/Time: Saturday, December 17, 2016 11:01 - CONCLUSION: Nonocclusive thrombus as described above. Jovanni Cid MD FACR Objective Remarks GENERAL: This is a well-nourished, well-developed patient, appears anxious and tells me he has to go home today ENT: dressing over neck in place. no bright red blood noted. No worsening lip or tongue swelling noted. CARDIOVASCULAR: Regular rate and regular rhythm with 2/6 JERE RESPIRATORY: Clear to auscultation. Breath sounds equal bilaterally. No wheezes GASTROINTESTINAL: Abdomen soft, non-tender, nondistended. Normal, active bowel sounds MUSCULOSKELETAL: Left arm swelling noted but seems improved. non tender, no obvious erythema NEURO: Alert & Oriented. Moves all ext x4 skin: small hives noted on chest and back, non itchy at this time. not much noted in arms or legs. Procedures ORIF left mandible A/P Problem List: (1) HTN (hypertension) ICD Code: I10 Status: Acute (2) Osteoradionecrosis of mandible ICD Code: M27.2 Status: Acute Assessment and Plan - osteoradionecrosis of the left mandible- s/p surgical repair continue with pain control- management/abx per facial surgery. script for Z- pack in chart by sx. received first dose of azithromycin this morning, pt to complete course as an outpatient,. full liquid diet w <2g Na diet. ancef was stopped as not sure if pt has allergy to it. -hypertensive urgency- BP very elevated this morning, this was prior to taking his metoprolol which pt hasn't been taking for the past 2 days- will recheck around lunch if much improved, ok to d/c home. f/u w PCP in 2-3 days for BP check upon discharge continue metoprolol- Left arm swelling- left arm u/s shows non occlusive thrombus of the basilic and brachial veins. s/p heparin gtt. I did discuss w Dr. Fisher and Pt was cleared by him to be started if u/s was positive for DVT. Discussed w Dr. Castillo and he recommended stopping the heparin gtt this morning and then start eliquis 5mg po BID today. -CAD/ s/p mitral valve repair- stable- f/u as outpatient Discharge Planning anticipate d/c later today. for the hives, pt tells me that this is normal for him, he gets them on and off. currently they are not itching. I stressed the importance of following up w PCP early next week. will give script for benadryl as well. Yesika Garcia MD Dec 18, 2016 10:38
[2016-12-18 12:00] VITALS: BP_SYST 178; BP_SYST 179; BP_DIAS 79; BP_DIAS 84; PULSE 71; RESP 17; TEMP 95.9; O2SAT 99
[2016-12-18] MEDS ORDERED: DIPH12.5S PO (12:58)
[2016-12-18] MEDS ORDERED: METO25TA6 PO (12:58)
[2016-12-18] MEDS ORDERED: METO50TA PO (12:59)
--- NOTE | 2016-12-18 13:04 | HHI.DS ---
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 at the time of my evaluation he was in no acute distress. denies any chest pain, dizziness or headache. however his BP was noted to be significantly elevated at the time. patient was seen with the RN at the bedside. CBC/BMP: 12/18/16 0824 12/16/162018 Significant Findings Laboratory Tests Test 12/16/16 12/17/16 12/17/16 12/18/16 20:19 14:30 20:59 03:40 White Blood Count 11.7 TH/MM3 (4.0-11.0) Red Blood Count 3.88 MIL/MM3 3.70 MIL/MM3 (4.50-5.90) (4.50-5.90) Hemoglobin 11.2 GM/DL 10.4 GM/DL (13.0-17.0) (13.0-17.0) Hematocrit 34.4 % 31.5 % (39.0-51.0) (39.0-51.0) Platelet Count 130 TH/MM3 112 TH/MM3 (150-450) (150-450) Mean Platelet Volume 6.9 FL (7.0-11.0) Neutrophils (%) (Auto) 89.0 % (16.0-70.0) Lymphocytes (%) (Auto) 4.9 % (9.0-44.0) Neutrophils # (Auto) 10.4 TH/MM3 (1.8-7.7) Lymphocytes # (Auto) 0.6 TH/MM3 (1.0-4.8) Sodium Level 132 MEQ/L (136-145) Carbon Dioxide Level 20.1 MEQ/L (21.0-32.0) Blood Urea Nitrogen 23 MG/DL (7-18) Estimat Glomerular Filtration 59 ML/MIN (>89) Rate Random Glucose 122 MG/DL (74-106) Calcium Level 8.1 MG/DL (8.5-10.1) Prothrombin Time 12.0 SEC (9.8-11.6) Activated Partial 45.2 SEC 50.4 SEC Thromboplast Time (24.3-30.1) (24.3-30.1) Test 12/18/16 08:24 Hemoglobin 10.7 GM/DL (13.0-17.0) Hematocrit 31.3 % (39.0-51.0) Activated Partial 50.8 SEC Thromboplast Time (24.3-30.1) Imaging Last Impressions Upper Extremity Ultrasound 12/17/16 0000 Signed Impressions: Service Date/Time: Monday, December 17, 2016 11:01 - CONCLUSION: Nonocclusive thrombus as described above. Jovanni Cid MD FACR PE at Discharge GENERAL: This is a well-nourished, well-developed patient, appears anxious and tells me he has to go home today ENT: dressing over neck in place. no bright red blood noted. No worsening lip or tongue swelling noted. CARDIOVASCULAR: Regular rate and regular rhythm with 2/6 JERE RESPIRATORY: Clear to auscultation. Breath sounds equal bilaterally. No wheezes GASTROINTESTINAL: Abdomen soft, non-tender, nondistended. Normal, active bowel sounds MUSCULOSKELETAL: Left arm swelling noted but seems improved. non tender, no obvious erythema NEURO: Alert & Oriented. Moves all ext x4 skin: small hives noted on chest and back, non itchy at this time. not much noted in arms or legs. Hospital Course - osteoradionecrosis of the left mandible- s/p surgical repair continue with pain control- management/abx per facial surgery. script for Z- pack in chart by sx. received first dose of azithromycin this morning, pt to complete course as an outpatient,. full liquid diet w <2g Na diet. Ancef was stopped as not sure if pt has allergy to it, he was complaining of itching. -hypertensive urgency- BP very elevated to the 190's this morning, this was prior to taking his metoprolol which pt hasn't been taking for the past 2 days- Repeat BP was 170's systolic. Pt insisting to go home. I will increase dose of metoprolol to 50mg po BID. Pt must f/u w PCP tomorrow for at least a BP check and adjustments to BP meds. Left arm swelling- left arm u/s shows non occlusive thrombus of the basilic and brachial veins. s/p heparin gtt. I did discuss w Dr. Fisher and Pt was cleared by him to be started if u/s was positive for DVT. Discussed w Dr. Castillo and he recommended stopping the heparin gtt this morning and then start eliquis 5mg po BID today. for the hives, pt tells me that this is normal for him, he gets them on and off. currently they are not itching. I stressed the importance of following up w PCP early next week. will give script for benadryl as well. Pt Condition on Discharge: Stable Discharge Disposition: Discharge Home Discharge Time: > 30 minutes Discharge Instructions DIET: Follow Instructions for: Heart Healthy Diet Additional Diet Instructions: full liquid diet Activities you can perform: Regular-No Restrictions Follow up Referrals: Oral Maxillary Surgery - 12/22/16 PCP Follow-up - 12/19/16 Referral - 12/21/16 with Hyperbaric consult New Medications: Apixaban (Eliquis) 5 Mg Tab 5 MG PO BID Blood Clot Prevention #60 Ref 0 TAB Chlorhexidine Gluconate (Mouth) Liq (Peridex Liq) 0.12% Soln 15 ML SWISH-SPIT BID #473 Ref 0 ML Metoprolol Tartrate (Metoprolol Tartrate) 50 Mg Tab 50 MG PO BID #60 Ref 0 TAB Diphenhydramine Liq (Diphenhydramine Liq) 12.5 Mg/5 Ml Elix 12.5 MG PO Q6H PRN ITCHING Days 5 Oxycodone (Oxycodone) 5 Mg Tab 7.5 MG PO Q4H PRN pain #15 Ref 0 TAB Discontinued Medications: Metoprolol Tartrate (Metoprolol Tartrate) 50 Mg Tab 50 MG PO DAILY #30 Ref 0 TAB Yesika Garcia MD Dec 18, 2016 13:04
--- NOTE | 2016-12-18 15:55 | HHI.PR ---
Subjective Remarks pod 4 s/p resection of left mandible, placement of reconstruction plate and cervical advancement flap came to round this afternoon, pt already discharged Objective Vital Signs Date Time Temp Pulse Resp B/P Pulse Ox O2 Delivery O2 Flow Rate FiO2 12/18/16 12:00 95.9 71 17 179/79 99 178/84 12/18/16 08:00 96.5 83 16 199/81 97 12/18/16 04:00 96.9 85 18 183/79 98 12/18/16 00:00 98.8 83 20 177/72 96 12/17/16 20:00 99.9 80 20 140/67 96 12/17/16 16:00 99.4 85 16 172/75 97 I/O 12/17/16 12/17/16 12/17/16 12/18/16 12/18/16 12/18/16 07:00 15:00 23:00 07:00 15:00 23:00 Intake Total 100 ml 900 ml 330 ml 65 ml Output Total 200 ml 250 ml 200 ml Balance -100 ml 650 ml 130 ml 65 ml Intake Oral 900 ml 240 ml IV Total 100 ml 0 ml 90 ml 65 ml Output Urine Total 200 ml 250 ml 200 ml # Voids 3 2 # Bowel Movements 0 Result Diagram: 12/18/16 0824 12/16/162018 Assessment and Plan Assessment and Plan pod 4 s/p resection of left mandible, placement of reconstruction plate and cervical advancement flap non occlusive thrombus left hand pt already discharged when I came for rounds medicine/fishing gear mechanic notes noted Onel Fisher DMD Dec 18, 2016 15:55
== END 2016-12-18 14:26 | disposition home or self-care (01) | DRG 129 ==
LOC: HSDC 11:16 → HPAC 12-15 00:44 → N07B 12-15 09:42
PROVIDERS: ADMIT Hospitalist; ATTEND Hospitalist
PROC: 0HX4XZZ Transfer Neck Skin, External Approach (ICD-10-PCS; 2016-12-14)
PROC: 0NR Head and Facial Bones, Replacement (ICD-10-PCS; 2016-12-14)
PROC: 0NBV0ZZ Excision of Left Mandible, Open Approach (ICD-10-PCS; principal; 2016-12-14 13:47)
DX: M27.2 Inflammatory conditions of jaws (principal); M84.48XA Pathological fracture, other site, initial encounter for fracture; I82.619 Acute embolism and thrombosis of superficial veins of unspecified upper extremity; I25.10 Atherosclerotic heart disease of native coronary artery without angina pectoris; Z95.1 Presence of aortocoronary bypass graft; Z95.2 Presence of prosthetic heart valve; I16.0 Hypertensive urgency; I10 Essential (primary) hypertension; Y84.2 Radiological procedure and radiotherapy as the cause of abnormal reaction of the patient, or of later complication, without mention of misadventure at the time of the procedure; M10.9 Gout, unspecified; M26.4 Malocclusion, unspecified; Z87.891 Personal history of nicotine dependence; Z85.810 Personal history of malignant neoplasm of tongue
CPT/HCPCS: 76937; 80048; 85014; 85018; 85025; 85027; 85610; 85730; 88309; 88311; 88341; 93971; C1713; J0690; J1644; J2270; J2405; J2930; J3010; J7050; J7120

== ENCOUNTER 2016-12-20 05:37 | Inpatient (IN) | payer MEDICARE, OTHER ==
[2016-12-20] VITALS (34 sets, daily range): BP systolic 103–228; BP diastolic 56–119; PULSE 68–123; RESP 13–21; TEMP 97.3–98.3; O2SAT 99–100
[~2016-12-20 05:37] MED LIST: APIX5TAB PO; ATROPINE SULFATE 1 MG/10 ML SYRINGE IV ONE; DIPH12.5S PO; EPINEPHrine HCL (1:10,000) 1 MG/10 ML SYRINGE IV ONE; METO50TA PO; NOREPINEPHRINE 4 MG/4 ML AMP IV ONE; OXYC-392 PO; PERI0.126 SWISH-SPIT
[2016-12-20] MEDS ORDERED: MORPHINE SULFATE 4 MG/ML INJ IV PUSH ONE ×2 (06:00→06:15)
[2016-12-20] MEDS ORDERED: ONDANSETRON HCL 4 MG/2 ML VIAL IV PUSH ONE (06:00)
[2016-12-20] MEDS ORDERED: SODIUM CHLOR 0.9% 1000 ML INJ 1,000 ML IV ONE (06:00)
[2016-12-20] MEDS ORDERED: PROTHROMBIN COMPLEX CONC INJ 1,500 UNITS in SYRINGE/BAG 1 EA IV ONE (06:15)
--- NOTE | 2016-12-20 06:27 | PD ---
HPI Chief Complaint: Bleeding Time Seen by Provider: 05:47 Travel History International Travel<30 days: No Contact w/Intl Traveler<30days: No Traveled to known affect area: No History of Present Illness HPI 81-year-old male complaining of pain and swelling and bleeding from the left side of the jaw. Patient has history of osteoradionecrosis of the mandible with pathologic fracture of the mandible. Patient status post ORIF left mandible on December 14. Patient developed nonocclusive thrombus on the left arm. Patient was put on heparin drip and subsequently discharged home on Eliquis 5 mg twice a day. Patient was discharged home December 18. Patient has been taking Eliquis as directed. Patient has been doing well until this morning when he started having increasing pain swelling and bleeding from the left gum. Patient denies any problem with swallowing or shortness of breath. Patient states that the pain is severe sharp pain localized to the left side of the jaw. Patient denies any pain radiation. On a scale of 1-10 the pain is a 10. PFSH Past Medical History Arthritis: No Cancer: Yes (squamous carcinoma) Cardiovascular Problems: Yes (CABG X3, PIG VALVE REPLACEMENT) Chemotherapy: Yes Diabetes: No Diminished Hearing: No Endocrine: No Genitourinary: No Hepatitis: No Hiatal Hernia: No Hypertension: Yes Immune Disorder: Yes (HX GOUT) Medical other: Yes (DETERIORATION LEFT BODY OF MANDIBLE) Musculoskeletal: No Neurologic: No Psychiatric: No Reproductive: No Respiratory: No Radiation Therapy: Yes Thyroid Disease: No Tetanus Vaccination: Unknown Influenza Vaccination: No Past Surgical History Abdominal Surgery: No AICD: No Body Medical Devices: pig valve, pins in sternum Cardiac Surgery: Yes (bypass) Ear Surgery: No Endocrine Surgery: No Eye Surgery: Yes (CATARACTS REMOVED) Genitourinary Surgery: No Joint Replacement: No Oral Surgery: Yes (throat cancer) Pacemaker: No Thoracic Surgery: Yes (PORT REMOVED AFTER CHEMO) Other Surgery: Yes (ORIF MANDIBLE 12/15/16) Social History Alcohol Use: No Tobacco Use: No Substance Use: No Allergies-Medications (Allergen,Severity, Reaction): Coded Allergies: No Known Allergies (Unverified , 12/14/16) Reported Meds & Prescriptions Reported Meds & Active Scripts Active Metoprolol Tartrate 50 Mg Tab 50 Mg PO BID Diphenhydramine Liq (Diphenhydramine HCl) 12.5 Mg/5 Ml Elix 12.5 Mg PO Q6H PRN 5 Days Eliquis (Apixaban) 5 Mg Tab 5 Mg PO BID Peridex Liq (Chlorhexidine Gluconate (Mouth) Liq) 0.12% Soln 15 Ml SWISH-SPIT BID Oxycodone (Oxycodone HCl) 5 Mg Tab 7.5 Mg PO Q4H PRN Review of Systems General / Constitutional: No: Fever Eyes: No: Visual changes HENT: No: Headaches Cardiovascular: No: Chest Pain or Discomfort Respiratory: No: Shortness of Breath Gastrointestinal: No: Abdominal Pain Genitourinary: No: Dysuria Musculoskeletal: No: Pain Skin: No Rash Neurologic: No: Weakness Psychiatric: No: Depression Endocrine: No: Polydipsia Hematologic/Lymphatic: No: Easy Bruising Physical Exam Narrative GENERAL: Well-nourished, well-developed patient. SKIN: Focused skin assessment warm/dry. HEAD: Normocephalic. EYES: No scleral icterus. No injection or drainage. NECK: Supple, trachea midline. No JVD or lymphadenopathy. CARDIOVASCULAR: Regular rate and rhythm without murmurs, gallops, or rubs. RESPIRATORY: Breath sounds equal bilaterally. No accessory muscle use. No stridor or wheezes. GASTROINTESTINAL: Abdomen soft, non-tender, nondistended. MUSCULOSKELETAL: No cyanosis, or edema. BACK: Nontender without obvious deformity. No CVA tenderness. Patient has soft tissue swelling tenderness left side the mandible and left gum area. Small amount of blood oozing from the left gum area. Data Data Last Documented VS Vital Signs Date Time Temp Pulse Resp B/P Pulse Ox O2 Delivery O2 Flow Rate FiO2 12/20/16 06:14 89 20 228/98 100 Room Air 12/20/16 05:40 97.3 Orders Complete Blood Count With Diff (12/20/16 05:57) Basic Metabolic Panel (Bmp) (12/20/16 05:57) Prothrombin Time / Inr (Pt) (12/20/16 05:57) Act Partial Throm Time (Ptt) (12/20/16 05:57) Iv Access Insert/Monitor (12/20/16 05:57) Ecg Monitoring (12/20/16 05:57) Oximetry (12/20/16 05:57) Morphine Inj (Morphine Inj) (12/20/16 06:00) Ondansetron Inj (Zofran Inj) (12/20/16 06:00) Sodium Chlor 0.9% 1000 Ml Inj (Ns 1000 M (12/20/16 06:00) Prothrombin Complex Conc Inj (Kcentra In (12/20/16 06:15) Ct Facial Bones W/O Iv Cont (12/20/16 ) Morphine Inj (Morphine Inj) (12/20/16 06:15) Lorazepam Inj (Ativan Inj) (12/20/16 06:30) Etomidate Inj (Amidate Inj) (12/20/16 06:32) Admit Order (Ed Use Only) (12/20/16 06:39) Labs Laboratory Tests Test 12/20/16 12/20/16 06:10 06:40 Sodium Level 138 MEQ/L Potassium Level 3.9 MEQ/L Chloride Level 103 MEQ/L Carbon Dioxide Level 26.4 MEQ/L Anion Gap 9 MEQ/L Blood Urea Nitrogen 22 MG/DL Creatinine 1.13 MG/DL Estimat Glomerular Filtration 62 ML/MIN Rate Random Glucose 114 MG/DL Calcium Level 8.8 MG/DL White Blood Count 23.6 TH/MM3 Red Blood Count 3.69 MIL/MM3 Hemoglobin 10.6 GM/DL Hematocrit 31.3 % Mean Corpuscular Volume 84.7 FL Mean Corpuscular Hemoglobin 28.6 PG Mean Corpuscular Hemoglobin 33.7 % Concent Red Cell Distribution Width 15.3 % Platelet Count 345 TH/MM3 Mean Platelet Volume 7.1 FL Neutrophils (%) (Auto) 78.6 % Lymphocytes (%) (Auto) 11.0 % Monocytes (%) (Auto) 8.9 % Eosinophils (%) (Auto) 1.2 % Basophils (%) (Auto) 0.3 % Neutrophils # (Auto) 18.5 TH/MM3 Lymphocytes # (Auto) 2.6 TH/MM3 Monocytes # (Auto) 2.1 TH/MM3 Eosinophils # (Auto) 0.3 TH/MM3 Basophils # (Auto) 0.1 TH/MM3 CBC Comment DIFF FINAL Differential Comment Prothrombin Time 11.5 SEC Prothromb Time International 1.0 RATIO Ratio Activated Partial 30.8 SEC Thromboplast Time MDM Medical Decision Making Medical Screen Exam Complete: Yes Emergency Medical Condition: Yes Differential Diagnosis Differential diagnosis including bleeding postsurgical site, hematoma, abscess. Narrative Course 81-year-old male with bleeding and increased in pain and swelling on the left- sided jaw. Status post ORIF left mandible. Patient has history of DVT left arm. Patient's on Eliquis. Normal saline solution 1 L IV bolus. Morphine 4 mg IV given. Zofran 4 mg IV. K Centra IV given. I spoke with Dr. Fisher, oral surgeon finish production manager for the group. Advised to admit patient to medical service with oral surgeon consultation. No airway compromise at this point. Critical Care Narrative Aggregate critical care time was 90 minutes. Time to perform other separately billable procedures was not included in the critical care time. My time did not include minutes spent treating any other patients simultaneously or on activities that did not directly contribute to the patient's treatment. The services I provided to this patient were to treat and/or prevent clinically significant deterioration that could result in: I provided critical care services requiring my management, as noted below: Chart data review, documentation time, medication orders and management, vital sign assessments/reviewing monitor data, ordering and reviewing lab tests, ordering and interpreting/reviewing x-rays and diagnostic studies, care of the patient and discussion of the patient with the admitting physicians. Procedures Procedure Narrative CENTRAL VENOUS LINE: The site was prepped with Betadine and sterilely draped. It was infiltrated with 1% lidocaine plain. The deep vein was cannulated using normal Seldinger technique. A triple lumen central line was placed in the right femoral vein site and secured with simple interrupted suture. The site was sterilely dressed. The patient tolerated the procedure well. Procedure note: Emergency tracheostomy placement. The anterior area was prepped with Betadine. Cricothyroid membrane palpated. #11 scalpel was used to make an incision anterior neck above the cricothyroid membrane. Blunt dissection to the trachea hemostat. Incision was made on the trachea. Tracheostomy placement. Ambu bag applied. Breath sounds equal bilaterally on bagging. Resuscitation: Patient has bradycardia and hypotension. Atropine 1 mg IV given. Patient lost his pulse and blood pressure. ACLS protocol started. Chest compression started. Epinephrine IV given in multiple doses. Patient regained blood pressure and pulses. Diagnosis Primary Impression: Cardiopulmonary arrest Additional Impressions: Throat cancer Osteoradionecrosis of mandible Admitting Information Admitting Physician Requests: Simone Myles MD Dec 20, 2016 06:27
[2016-12-20] MEDS ORDERED: LORazepam 2 MG/ML VIAL IV PUSH ONE (06:30)
[2016-12-20] MEDS ORDERED: ETOMIDATE 20 MG/10 ML VIAL ONE (06:32)
[2016-12-20 06:39] LABS: BICARBONATE 26.4 MEQ/L (21.0-32.0)
[2016-12-20 06:44] LABS: POTASSIUM 3.9 MEQ/L (3.5-5.1)
[2016-12-20] MEDS ORDERED: NOREPINEPHRINE 4 MG/4 ML AMP ONE (07:02)
[2016-12-20 07:09] LABS: AUTOMATED NEUTROPHIL # 18.5 TH/MM3 (1.8-7.7); BASOPHIL # 0.1 TH/MM3 (0-0.2); BASOPHIL % 0.3 % (0.0-2.0); EOSINOPHIL # 0.3 TH/MM3 (0-0.4); EOSINOPHIL % 1.2 % (0.0-4.0); HEMATOCRIT 31.3 % (39.0-51.0); HEMO FLAGS DIFF FINAL; LYMPHOCYTE # 2.6 TH/MM3 (1.0-4.8); MEAN CELL VOLUME 84.7 FL (80.0-100.0); MEAN CORPUSCULAR HEMOGLOBIN 28.6 PG (27.0-34.0); MEAN CORPUSCULAR HGB CONC 33.7 % (32.0-36.0); MONO % 8.9 % (0.0-8.0); NEUT % 78.6 % (16.0-70.0); PLATELET COUNT 345 TH/MM3 (150-450); RED BLOOD COUNT 3.69 MIL/MM3 (4.50-5.90); RED CELL DISTRIBUTION WIDTH 15.3 % (11.6-17.2); WHITE BLOOD COUNT 23.6 TH/MM3 (4.0-11.0)
[2016-12-20 07:14] LABS: PROTHROMBIN TIME - PATIENT 11.5 SEC (9.8-11.6)
[2016-12-20 07:15] LABS: APTT (PATIENT) 30.8 SEC (24.3-30.1)
[2016-12-20] MEDS ORDERED: PROPOFOL 1000 MG/100 ML INJ 100 ML ONE (07:15)
[2016-12-20] MEDS: CHLORHEXIDINE 0.12% (ORAL KIT) 15 ML CUP MT SCH (08:00)
[2016-12-20] MEDS ORDERED: CHLORHEXIDINE GLUCONATE 2 % 1 PACK (2 CLOTHS) TOP PRN (08:00)
[2016-12-20] MEDS ORDERED: RESP: ALBUTEROL 2.5 MG/IPRATROPIUM 0.5 MG NEB (PRN) INH (08:00)
[2016-12-20] MEDS ORDERED: MISCELLANEOUS NURSING INFORMATION XX SCH (08:00)
[2016-12-20] MEDS ORDERED: SODIUM CHLORIDE 0.9% FLUSH 10 ML FLUSH IV FLUSH PRN (08:00)
[2016-12-20 08:12] LABS: BLOOD GAS BASE EXCESS -2.9 mmol/L (-2-2); BLOOD GAS CARBOXYHEMOGLOBIN 1.3 % (0-4); BLOOD GAS HCO3 21 mmol/L (22-26); BLOOD GAS METHEMOGLOBIN 0.4 % (0-2); BLOOD GAS O2 HGB SATURATION 98 % (90-100); BLOOD GAS OXYGEN CONTENT 12.6 Vol % (12.0-20.0); BLOOD GAS PCO2 35 mmHg (38-42); BLOOD GAS PO2 167 mmHG (61-120); BLOOD GAS TOTAL HGB 8.9 G/DL (12.0-16.0); CRITICAL VALUE NO; FIO2 50 %; OXYGEN DEVICE VENTILATOR; TEMP CORR TO 98.6
[2016-12-20 08:13] LABS: DRAW SITE LT RADIAL; NUMBER OF ARTERIAL PUNCTURES 1; STAT NO; ULNAR PULSE PRESENT
[2016-12-20] MEDS ORDERED: LABETALOL HCL 100 MG/20 ML VIAL IV PUSH PRN (08:15)
--- NOTE | 2016-12-20 08:43 | HHI.HP ---
HPI Service Critical Care Medicine Primary Care Physician Deleted Admission Diagnosis airway obstruction. Status post ORIF mandible. Diagnosis: Travel History International Travel<30 Days: No Contact w/Intl Traveler <30 Da: No Traveled to Known Affected Are: No History of Present Illness HPI 81-year-old male complaining of pain and swelling and bleeding from the left side of the jaw. Patient has history of osteoradionecrosis of the mandible with pathologic fracture of the mandible. Patient status post ORIF left mandible on December 14. Patient developed nonocclusive thrombus on the left arm. Patient was put on heparin drip and subsequently discharged home on Eliquis 5 mg twice a day. Patient was discharged home December 18. Patient has been taking Eliquis as directed. Patient has been doing well until this morning when he started having increasing pain swelling and bleeding from the left gum. Patient denied any shortness of breath. Patient states that the pain was severe sharp pain localized to the left side of the jaw. Patient denies any pain radiation. On a scale of 1-10 the pain is a 10. Patient was sent for CT of facial bones however while in CAT scan developed difficulty with his breathing and was brought back to the emergency room following which he was felt to have a compromised airway. He went into a cardiac arrest and had CPR/ ACLS for 7 minutes prior to return of spontaneous circulation. He underwent an emergent cricothyrotomy during ACLS and was placed on mechanical ventilation. Patient was also evaluated by Dr. Fisher in the ER. He was accepted for admission by critical care medicine service. I evaluated the patient immediately on being notified while he was in the ER. At that time he was sedated with propofol, on mechanical ventilation via cricothyrotomy. Patient's daughter was at the bedside and was updated regarding events by myself ER physician as well as Dr. Fisher. She did not want any further invasive procedures and wish to change CODE STATUS to DNR status. History was obtained by reviewing records and discussion with Dr. Winchester, Dr. Fisher, patient started as well as ER nursing staff. History PFSH Past Medical History Arthritis: No Cancer: Yes (squamous carcinoma) Cardiovascular Problems: Yes (CABG X3, PIG VALVE REPLACEMENT) Chemotherapy: Yes Diabetes: No Diminished Hearing: No Endocrine: No Genitourinary: No Hepatitis: No Hiatal Hernia: No Hypertension: Yes Immune Disorder: Yes (HX GOUT) Medical other: Yes (DETERIORATION LEFT BODY OF MANDIBLE) Musculoskeletal: No Neurologic: No Psychiatric: No Reproductive: No Respiratory: No Radiation Therapy: Yes Thyroid Disease: No Tetanus Vaccination: Unknown Influenza Vaccination: No Recent DVT left UE on Eliquis Past Surgical History Abdominal Surgery: No AICD: No Body Medical Devices: pig valve, pins in sternum Cardiac Surgery: Yes (bypass) Ear Surgery: No Endocrine Surgery: No Eye Surgery: Yes (CATARACTS REMOVED) Genitourinary Surgery: No Joint Replacement: No Oral Surgery: Yes (throat cancer) Pacemaker: No Thoracic Surgery: Yes (PORT REMOVED AFTER CHEMO) Other Surgery: Yes (ORIF MANDIBLE 12/15/16) Social History Alcohol Use: No Tobacco Use: No Substance Use: No Allergies-Medications Allergies-Medications (Allergen,Severity, Reaction): Coded Allergies: No Known Allergies (Unverified , 12/14/16) Reported Meds & Prescriptions Reported Meds & Active Scripts Active Metoprolol Tartrate 50 Mg Tab 50 Mg PO BID Diphenhydramine Liq (Diphenhydramine HCl) 12.5 Mg/5 Ml Elix 12.5 Mg PO Q6H PRN 5 Days Eliquis (Apixaban) 5 Mg Tab 5 Mg PO BID Peridex Liq (Chlorhexidine Gluconate (Mouth) Liq) 0.12% Soln 15 Ml SWISH-SPIT BID Oxycodone (Oxycodone HCl) 5 Mg Tab 7.5 Mg PO Q4H PRN Review of Systems ROS Limitations: Clinical Condition, Intubated Physical Exam Vital Signs Vital Signs Date Time Temp Pulse Resp B/P Pulse Ox O2 Delivery O2 Flow Rate FiO2 12/20/16 08:15 96 13 103/59 100 Ventilator 12/20/16 08:00 103 20 116/58 100 Ventilator 12/20/16 07:56 104 20 105/57 100 Ventilator 12/20/16 07:45 112 20 104/56 100 Ventilator 12/20/16 07:42 115 21 112/56 100 Ventilator 12/20/16 07:40 119 20 106/57 100 Ventilator 12/20/16 07:35 123 20 108/59 100 12/20/16 06:55 100 15.00 100 12/20/16 06:14 89 20 228/98 100 Room Air 12/20/16 05:47 16 12/20/16 05:40 97.3 84 16 194/119 100 Room Air Physical Exam HEENT/ Neuro: Sedated, orally intubated, Pallor present, no icterus, tongue/ mucosa moist, swelling around left side of face/ jaw, sutures over left jaw ORIF site noted. Neck: No JVD Chest/Pulm: on mech vent, good air entry bilaterally, scattered rhonchi, no wheezing or crackles. CVS: S1-S2 regular, no murmur GI/abdomen: soft, nontender, bowel sounds sluggish Extremities: warm bilaterally, no edema Laboratory Laboratory Tests Test 12/20/16 12/20/16 12/20/16 06:10 06:40 07:55 Sodium Level 138 Potassium Level 3.9 Chloride Level 103 Carbon Dioxide Level 26.4 Anion Gap 9 Blood Urea Nitrogen 22 Creatinine 1.13 Estimat Glomerular Filtration 62 Rate Random Glucose 114 Calcium Level 8.8 White Blood Count 23.6 Red Blood Count 3.69 Hemoglobin 10.6 Hematocrit 31.3 Mean Corpuscular Volume 84.7 Mean Corpuscular Hemoglobin 28.6 Mean Corpuscular Hemoglobin 33.7 Concent Red Cell Distribution Width 15.3 Platelet Count 345 Mean Platelet Volume 7.1 Neutrophils (%) (Auto) 78.6 Lymphocytes (%) (Auto) 11.0 Monocytes (%) (Auto) 8.9 Eosinophils (%) (Auto) 1.2 Basophils (%) (Auto) 0.3 Neutrophils # (Auto) 18.5 Lymphocytes # (Auto) 2.6 Monocytes # (Auto) 2.1 Eosinophils # (Auto) 0.3 Basophils # (Auto) 0.1 CBC Comment DIFF FINAL Differential Comment Prothrombin Time 11.5 Prothromb Time International 1.0 Ratio Activated Partial 30.8 Thromboplast Time Blood Gas Puncture Site LT RADIAL Blood Gas Patient Temperature 98.6 Blood Gas HCO3 21 Blood Gas Base Excess -2.9 Blood Gas Oxygen Saturation 98 Arterial Blood pH 7.40 Arterial Blood Partial 35 Pressure CO2 Arterial Blood Partial 167 Pressure O2 Arterial Blood Oxygen Content 12.6 Arterial Blood 1.3 Carboxyhemoglobin Arterial Blood Methemoglobin 0.4 Blood Gas Hemoglobin 8.9 Oxygen Delivery Device VENTILATOR Blood Gas Ventilator Setting Blood Gas Inspired Oxygen 50 Result Diagram: 12/20/16 0640 12/20/16 0610 Imaging Awaiting chest x-ray and CT face and soft tissues of neck Assessment and Plan Assessment and Plan 81-year-old male with: Cardiac arrest status post CPR Postop Left sided jaw swelling Compromised airway requiring emergent cricothyrotomy Acute respiratory failure on mechanical ventilation Suspected aspiration Recent left approximately DVT Leukocytosis Hypertension status post recent ORIF for osteonecrosis of mandible 12/15 Remote history of CABG and porcine valve replacement. Plan: Neuro: Sedation with propofol, daily sedation vacation, follow neuro checks. 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 Cardiovascular: Cardiac arrest status post CPR. Watch for hypotension. Old metoprolol at this time. Labetalol when necessary for hypertension if needed. Serial cardiac enzymes. Hold Eliquis in view of emergent cricothyrotomy and bleeding from oral cavity noted earlier. Pulmonary: New mechanical ventilation, vent bundle, bronchodilators as needed. Cricothyrotomy in place. Patient's daughter does not want any further invasive procedures including tracheostomy. We will attempt weaning off mechanical ventilation depending on neurologic status GI/liver: Nothing by mouth for now. May require OG tube placement in the next few days for tube feeds Renal/: IV hydration, strict intake output, monitor and replete elect lites, follow BUN/creatinine. Heme: Follow CBC. Eliquis held currently in view of bleeding from oral cavity as well as emergent cricothyrotomy. Known DVT right upper extremity. Patient is at risk for thromboembolic events. Daughter aware. Endocrine: SSI for glycemic control if needed. ID: Leukocytosis noted. Unclear etiology. We'll obtain marquez cultures and initiate empiric antibiotic coverage with IV Zosyn. Review CT face and soft tissues of neck for further evaluation. Suspect aspiration event prior to cardiac arrest. Prophylaxis: PPI/SCDs. We'll consider subcutaneous heparin starting tomorrow if no bleeding from cricothyrotomy site and if okay with OMFS. Discussed extensively with patient's daughter who does not want any further invasive procedures and wish to change CODE STATUS to DNR. Consulted palliative care to assist with deciding goals of therapy.. Condition critical Time spent on critical care excluding procedures: 70 minutes Julius Lopes MD Dec 20, 2016 08:43
--- NOTE | 2016-12-20 08:49 | RADRPT ---
EXAM DATE/TIME: 12/20/2016 07:57 [facility] COMPARISON: No prior comparison. INDICATIONS : Post procedure, tracheostomy. MEDICAL HISTORY : Hypertension. Carcinoma, throat/jaw area. Syncope. Gout. Carcinoma, squamous. Chemo. SURGICAL HISTORY : CABG Cardiac bypass. Port removal. Right rotator cuff repair ENCOUNTER: Initial ACUITY: 1 day PAIN SCORE: Non-responsive. LOCATION: Bilateral chest FINDINGS: Tracheostomy is in satisfactory position. Previous CABG. There is bilateral perihilar airspace consolidation, right greater than left with patchy airspace dis ease at the left lung base as well. Primary differential diagnosis is aspiration or pneumonia. Heart size is normal. No significant effusion. No pneumothorax. CONCLUSION: 1. Bilateral perihilar airspace consolidation and left basilar opacity. Differential diagnosis includ es aspiration and pneumonia. 2. Tracheostomy in satisfactory position. Rye Bruno MD on December 20, 2016 at 8:43 Board Certified Radiologist. This report was verified electronically.
--- NOTE | 2016-12-20 09:00 | MB ---
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 He has got a history of poorly controlled hypertension. He developed a nonocclusive thrombus on the left arm over the weekend on Monday. He was started on heparin and then discharged on Eliquis. The patient presented to the ER this morning secondary to some pain and bleeding from the left side. The ER physician, Dr. Simone Winchester, noted just minimally oozing from the site, advised to have him admitted to Medicine Service. Dr. Simone Winchester was going to reverse the Eliquis and get a CT scan. As I came to see the patient this morning in the ER the patient was in a code. They had already begun cricothyroidectomy. I placed the cannula and his cricoid membrane. The airway at this point was secured. At this point he is stable, maintaining his own pressure and heart rate. He is in critical condition. He is going to be taken to the ICU at this point. I do not see any active heme that is coming from his neck. There is no gross distension in his neck. There is no blood coming from his mouth, from inside the wound on the left side of the mandible which has somewhat opened up on the inside of his mouth. Back of the throat is suctioned and I do not see any active heme at this point. Dr. Velasquez of Anesthesia has indicated that he was not able to intubate him orally secondary to being able to see the airway because of the edema. We will continue to monitor the patient. The patient has in critical but stable condition at this point. Nick Fisher DMD RESIDENTIAL FEE APPRAISER/SSB /7:39 AM /8:52 AM
--- NOTE | 2016-12-20 09:04 | RADRPT ---
EXAM DATE/TIME: 12/20/2016 08:25 [facility] COMPARISON: No previous studies available for comparison. INDICATIONS : Throat swelling and pain. Status post mandibular surgery. RADIATION DOSE: 15.09 CTDIvol (mGy) MEDICAL HISTORY : Hypertension. Throat cancer. SURGICAL HISTORY : Mandibular surgery. ENCOUNTER: Initial ACUITY: 1 day PAIN SCORE: Non-responsive LOCATION: throat TECHNIQUE: Volumetric scanning of the neck was performed. Using automated exposure control and adjustment of th e mA and/or kV according to patient size, radiation dose was kept as low as reasonably achievable to obtain optimal diagnostic quality images. DICOM format image data is available electronically for re view and comparison. FINDINGS: There are postoperative changes from recent partial resection of the left mandible with malleable anisa te and screw fixation extending from the left mandibular neck region through the anterior body of the left mandible. There is complex fluid and multiloculated air predominantly inferior to the surgical site extending down the left neck below the glottis. This air and fluid collection on the left has a short axis transverse diameter of about 2.3 cm, oblique AP diameter of about 6 cm and extends over a length of about 6 cm. There is also extensive air that has dissected into the soft tissues of the right neck especially in the parapharyngeal region. Presumably this is also related to recent surgery. Cannot exclude a postsu rgical infection based on current findings. A tracheostomy is present in suspect position. There is previous median sternotomy. Paramediastinal l doris changes in the upper lungs are most characteristic of previous radiation. There is mucosal thickening in ethmoid air cells. CONCLUSION: 1. Postsurgical changes from partial left mandibular resection with plate and screw fixation. 2. Complex air-fluid collection in the left neck extending from the mandibular region inferiorly with measurements given above. This could represent postsurgical change with some seroma or hemorrhage. C annot exclude infection. There is fairly extensive dissection of air into the right neck as well incl uding the deep soft tissues around the right parapharyngeal space. 3. Tracheostomy in satisfactory position. Rey Bruno MD on December 20, 2016 at 8:53 Board Certified Radiologist. This report was verified electronically.
[2016-12-20] MEDS: SODIUM CHLOR 0.9% 1000 ML INJ 1,000 ML IV SCH (09:08)
[2016-12-20] MEDS: PANTOPRAZOLE SODIUM 40 MG VIAL IV SCH (09:09)
[2016-12-20] MEDS: PIPERACIL-TAZO 4.5 GM PREMIX 100 ML IV SCH ×3 (09:09→22:08)
[2016-12-20] MEDS: SODIUM CHLORIDE 0.9% FLUSH 10 ML FLUSH IV FLUSH SCH (09:09)
[2016-12-20] MEDS: RESP: ALBUTEROL 2.5 MG/IPRATROPIUM 0.5 MG NEB (SCH) NEB ×3 (09:30→20:49)
[2016-12-20] MEDS: INSULIN ASPART SUPPLEMENTAL SCALE SQ SCH ×2 (12:00→18:00)
[2016-12-20] MEDS ORDERED: LIDOCAINE HCL 2% 50 ML VIAL ONE (12:54)
[2016-12-20] MEDS ORDERED: Vancomycin Consult Pharmacy 1 EA OTHER SCH (13:15)
[2016-12-20] MEDS ORDERED: VANCOMYCIN INJ 1,000 MG in SODIUM CHLOR 0.9% 250 ML INJ 250 ML IV SCH (14:00)
--- NOTE | 2016-12-20 14:03 | PD.CONS ---
Consult Service Palliative Care Consult Requested By Dr. Itzel Lopes . Primary Care Physician Unknown . Reason for Consultation a. To assist with evaluation and management of symptoms including: Pain, dyspnea b. To assist medical decision maker(s) with: better understanding of current medical conditions; weighing benefits/burdens of medical treatment options; making medical treatment decisions. . HPI History of Present Illness This 81-year-old male, with a past history of tongue cancer 2010 that was treated, CAD, valvular heart disease, hypertension, osteoradionecrosis of the left mandible, a recent nonocclusive DVT involving the left arm, and placement of a reconstruction plate in the left mandible last week, presented to the emergency department early this morning because of not feeling well and be because of some bleeding. The patient underwent the reconstruction on 12/14/16, and has been home the past few days. He has not required pain medicine at home according to his daughter. After discovery of the nonocclusive thrombus in the left arm, the patient had been on heparin, and was sent home on Eloquis. For the past 24 hours, the patient has felt weaker, and then noticed more bleeding from his recent surgery. 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 He was alert upon arrival, and eventually was taken to CT scan where he developed an airway obstruction when he was supine for the scan. He was brought back to the emergency department, and orotracheal intubation was not possible due to swelling in the oropharynx. An emergency cricothyroidotomy was completed, but during that process the patient suffered a cardiac arrest. He was subsequently resuscitated successfully fairly quickly (it is not clear to me how many minutes he was in cardiac arrest). In the emergency department, findings included: * Temp 97.3, pulse 89, respirations 20, initial blood pressure 228/98 * Sodium 138, creatinine 1.13 * White count 23.6, hemoglobin 10.6 * Post cric chest x-ray indicated bilateral infiltrates The patient has subsequently been [place] [facility] He remains on 40% FiO2 via the cric, and the patient's daughter has indicated she does not want to proceed with a conversion to full tracheostomy. Palliative Care was consulted to assist with symptom management, and to enter into discussions with the patient's decision makers regarding the current medical issues, the prognosis, and the benefits and burdens of the various treatment choices. . Function/Cognitive Trajectory The patient had been declining slowly but steadily over the past couple years, with increasing weakness and weight loss of 40 or 50 pounds. Some of the weight loss was due to the inability to eat because of his mandible issues. Nonetheless, he had been functioning independently at home, getting his own food , and still driving a car. He had housekeepers that came in to help with cleaning. . Review of Systems ROS Limitations: Clinical Condition, Intubated Constitutional: COMPLAINS OF: Weight loss Endocrine: DENIES: Polyuria Eyes: DENIES: Eye inflammation Ears, nose, mouth, throat: DENIES: Epistaxis Respiratory: COMPLAINS OF: Shortness of breath (airway obstruction) Cardiovascular: DENIES: Chest pain Gastrointestinal: DENIES: Bloody stools, Constipation, Diarrhea, Vomiting, Vomiting blood Genitourinary: DENIES: Hematuria Musculoskeletal: DENIES: Back pain, Neck pain Integumentary: DENIES: Rash Hematologic/Lymphatics: DENIES: Lymphadenopathy Immunologic/Allergic: DENIES: Urticaria Neurologic: DENIES: Abnormal gait, Seizures Psychiatric: DENIES: Confusion, Hallucinations, Agitation Past Family Social History Coded Allergies: No Known Allergies (Unverified , 12/14/16) Past Medical History * Airway obstruction, status post cricothyroidotomy * Cardiac arrest following airway obstruction, successful resuscitation * Pneumonia on x-ray * Osteoradionecrosis left side of mandible, status post surgery 12/14/16 * DVT left arm one week prior to admission * Cancer of the tongue 2010, status post surgery, chemotherapy, radiation * CAD * Hypertension * Gout . Past Surgical History * Tonsils * Rotator cuff * Port for chemotherapy * CABG and mitral valve replacement 2006 * Tongue cancer 2010 * Cataracts 2013 * Left mandible reconstruction 12/14/16 . Reported Medications The patient was not on any pain medicines at home prior to this admission, but he had been taking Eloquis. . Current Medications Medications (Trade) Dose Ordered Sig/Yang Route Start Time Stop Time Status Last Admin (NS 1000 ml Inj) 1,000 ml @ 75 mls/hr [id number] IV 12/20/16 07:50 12/20/16 09:08 (NS Flush) 2 ml UNSCH PRN IV FLUSH 12/20/16 08:00 (NS Flush) 2 ml BID IV FLUSH 12/20/16 09:00 12/20/16 09:09 (Peridex 0.12% Liq) 15 ml BID@08,20 MT 12/20/16 08:00 12/20/16 08:00 (Protonix Inj) 40 mg DAILY IV 12/20/16 09:00 12/20/16 09:09 Miscellaneous Information 1 [id number] XX 12/20/16 08:00 12/20/16 08:00 (Chlorhexidine 2% Cloth) 3 pack Taper DAILY@04 TOP 12/21/16 04:00 12/17/17 03:59 Chlorhexidine Gluconate 3 pack 3 pack UNSCH PRN TOP 12/20/16 08:00 (Diprivan 1000 Mg/100ml Inj) 100 ml @ 0 mls/hr TITRATE IV 12/20/16 08:00 (NovoLOG SUPPLEMENTAL SCALE) 1 Q6HR SQ 12/20/16 12:00 Labetalol HCl 20 mg 20 mg Q2HR PRN IV PUSH 12/20/16 08:15 Piperacillin Sod/ Tazobactam Sod 100 ml @ 200 mls/hr Q6H IV 12/20/16 10:00 12/20/16 09:09 Vancomycin HCl 1000 mg/Sodium Chloride 250 ml @ 250 mls/hr Q12H IV 12/20/16 14:00 (Vancomycin Consult Pharmacy) 0 ml @ 0 mls/hr UNSCH OTHER 12/20/16 13:15 Family History The patient's mother of heart disease, and father of liver cancer. There is no family history of head/neck cancers. One brother of complications of diabetes and heart disease . Substance Use Tobacco: The patient quit smoking about 15 years ago Alcohol: He reportedly drank 1 or 2 drinks per day Prescription med abuse: None Illicits: None . 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 He stayed active and did other jobs for several years until he began declining after his tongue cancer and treatment. He stopped playing tennis at that time also. The patient was , in 2014. He lived alone since that time. He has a daughter in [place], a daughter in [place], and a son in the [employer] stationed in [place] but currently deployed. . Spiritual/Cultural Factors The patient is Jainism, and spirituality has been more important for him in recent months and years. A water plant maintenance mechanic has visited. . Living Will: Completed, but not made available Health Care Surrogate: Completed, but not made available Durable Power of Food Service Technician: Never completed Health Care Surrogate(s): Daughter: Adela Hull . Family/friends goals: The patient's daughter is feeling somewhat stressed and guilty regarding her decision to allow resuscitation and cricothyroidotomy in the emergency department, stating that her father had told her on numerous occasions "don't do anything, just let me go." She reports that the patient has been ready to since his a couple years ago. . Ethical and Legal Issues There are no ethical issues that would impact his care or decision-making at this time. The patient lacks capacity for decision-making at this time, but it is possible that he will regain that capacity. His daughter Adela is the designated health care surrogate. . Physical Exam Vital Signs Date Time Temp Pulse Resp B/P Pulse Ox O2 Delivery O2 Flow Rate FiO2 12/20/16 13:00 87 14 127/65 100 12/20/16 12:00 40 12/20/16 12:00 97.6 87 14 122/67 100 12/20/16 11:17 100 40 12/20/16 11:00 85 16 121/59 100 12/20/16 10:00 88 15 123/61 100 12/20/16 09:30 100 40 12/20/16 09:28 40 12/20/16 09:00 98.3 96 17 126/67 100 12/20/16 08:50 98.3 101 14 131/66 99 12/20/16 08:26 100 40 12/20/16 08:15 96 13 103/59 100 Ventilator 12/20/16 08:02 100 50 12/20/16 08:00 103 20 116/58 100 Ventilator 12/20/16 07:56 104 20 105/57 100 Ventilator 12/20/16 07:45 112 20 104/56 100 Ventilator 12/20/16 07:42 115 21 112/56 100 Ventilator 12/20/16 07:40 119 20 106/57 100 Ventilator 12/20/16 07:35 123 20 108/59 100 12/20/16 06:55 100 15.00 100 12/20/16 06:14 89 20 228/98 100 Room Air 12/20/16 05:47 16 12/20/16 05:40 97.3 84 16 194/119 100 Room Air Exam CONSTITUTIONAL/GENERAL: This is an elderly patient, in no apparent distress. Sedated, in the [facility] TUBES/LINES/DRAINS: Airway via cric, peripheral IVs, Spangler SKIN: No jaundice, rashes, or lesions. Ecchymoses on upper extremities. No wounds seen anteriorly. Skin temperature appropriate. Not diaphoretic. HEAD: Atraumatic. Normocephalic. EYES: Pupils equal and round and reactive. No scleral icterus. No injection or drainage. Fundi not examined. ENT: Nose without bleeding or purulent drainage. Throat without visible erythema, exudates, masses, or lesions. NECK: Trachea midline. Supple, nontender. No palpable thyroid enlargement or nodularity. CARDIOVASCULAR: Regular rate and rhythm without murmurs, gallops, or rubs. No JVD. Peripheral pulses symmetric. RESPIRATORY/CHEST: Symmetric, unlabored respirations. Clear to auscultation. Breath sounds equal bilaterally. No wheezes, rales, or rhonchi. GASTROINTESTINAL: Abdomen soft, non-tender, nondistended. No hepato-splenomegaly , or palpable masses. No guarding. Bowel sounds present. GENITOURINARY: Without palpable bladder distension. Spangler catheter in place. MUSCULOSKELETAL: Extremities without clubbing, cyanosis, or edema. No joint tenderness or effusion noted. No calf tenderness. No mottling or clubbing. LYMPHATICS: No palpable cervical or supraclavicular adenopathy. NEUROLOGICAL: Sedated on propofol, occasionally moves toes PSYCHIATRIC: Unable to assess due to clinical condition and sedation . Diagnostic Tests Laboratory Laboratory Tests Test 12/20/16 12/20/16 12/20/16 12/20/16 06:10 06:40 07:55 09:45 Sodium Level 138 MEQ/L (136-145) Potassium Level 3.9 MEQ/L (3.5-5.1) Chloride Level 103 MEQ/L (98-107) Carbon Dioxide Level 26.4 MEQ/L (21.0-32.0) Anion Gap 9 MEQ/L (5-15) Blood Urea Nitrogen 22 MG/DL (7-18) Creatinine 1.13 MG/DL (0.60-1.30) Estimat Glomerular Filtration 62 ML/MIN (>89) Rate Random Glucose 114 MG/DL (74-106) Calcium Level 8.8 MG/DL (8.5-10.1) White Blood Count 23.6 TH/MM3 (4.0-11.0) Red Blood Count 3.69 MIL/MM3 (4.50-5.90) Hemoglobin 10.6 GM/DL (13.0-17.0) Hematocrit 31.3 % (39.0-51.0) Mean Corpuscular Volume 84.7 FL (80.0-100.0) Mean Corpuscular Hemoglobin 28.6 PG (27.0-34.0) Mean Corpuscular Hemoglobin 33.7 % Concent (32.0-36.0) Red Cell Distribution Width 15.3 % (11.6-17.2) Platelet Count 345 TH/MM3 (150-450) Mean Platelet Volume 7.1 FL (7.0-11.0) Neutrophils (%) (Auto) 78.6 % (16.0-70.0) Lymphocytes (%) (Auto) 11.0 % (9.0-44.0) Monocytes (%) (Auto) 8.9 % (0.0-8.0) Eosinophils (%) (Auto) 1.2 % (0.0-4.0) Basophils (%) (Auto) 0.3 % (0.0-2.0) Neutrophils # (Auto) 18.5 TH/MM3 (1.8-7.7) Lymphocytes # (Auto) 2.6 TH/MM3 (1.0-4.8) Monocytes # (Auto) 2.1 TH/MM3 (0-0.9) Eosinophils # (Auto) 0.3 TH/MM3 (0-0.4) Basophils # (Auto) 0.1 TH/MM3 (0-0.2) CBC Comment DIFF FINAL Differential Comment Prothrombin Time 11.5 SEC (9.8-11.6) Prothromb Time International 1.0 RATIO Ratio Activated Partial 30.8 SEC Thromboplast Time (24.3-30.1) Blood Gas Puncture Site LT RADIAL Blood Gas Patient Temperature 98.6 Blood Gas HCO3 21 mmol/L (22-26) Blood Gas Base Excess -2.9 mmol/L (-2-2) Blood Gas Oxygen Saturation 98 % (90-100) Arterial Blood pH 7.40 (7.380-7.420) Arterial Blood Partial 35 mmHg (38-42) Pressure CO2 Arterial Blood Partial 167 mmHG Pressure O2 (61-120) Arterial Blood Oxygen Content 12.6 Vol % (12.0-20.0) Arterial Blood 1.3 % (0-4) Carboxyhemoglobin Arterial Blood Methemoglobin 0.4 % (0-2) Blood Gas Hemoglobin 8.9 G/DL (12.0-16.0) Oxygen Delivery Device VENTILATOR Blood Gas Ventilator Setting Blood Gas Inspired Oxygen 50 % Nasal Screen MRSA (PCR) MRSA NOT DETECTED (NOT DETECT) Result Diagram: 12/20/16 0640 12/20/16 0610 Imaging Last Impressions Chest X-Ray 12/20/16 0751 Signed Impressions: Service Date/Time: Tuesday, December 20, 2016 07:57 - CONCLUSION: 1. Bilateral perihilar airspace consolidation and left basilar opacity. Differential diagnosis includes aspiration and pneumonia. 2. Tracheostomy in satisfactory position. Rey Bruno MD Neck CT 12/20/16 0000 Signed Impressions: Service Date/Time: Tuesday, December 20, 2016 08:25 - CONCLUSION: 1. Postsurgical changes from partial left mandibular resection with plate and screw fixation. 2. Complex air-fluid collection in the left neck extending from the mandibular region inferiorly with measurements given above. This could represent postsurgical change with some seroma or hemorrhage. Cannot exclude infection. There is fairly extensive dissection of air into the right neck as well including the deep soft tissues around the right parapharyngeal space. 3. Tracheostomy in satisfactory position. Rey Brnuo MD Procedures Cricothyroidotomy 12/20/16 . Patient/Family Conference Present at Family Conference: Daughter Adela . Family Conference Time (mins): 39 Family Conference Location: Consult Room Issues Discussed: * Palliative care role, purpose, approach * Additional medical, psychosocial, and spiritual history * Patients general health, functional status, and cognitive changes in the months leading up to the current hospitalization * Patient/family understanding of the current medical problems * Patient/family understanding of prognosis * Patients goals of care as best understood from advance directives and/or conversations and/or values * Current medical treatment options and benefits/burdens of those options * Likely scenarios comparing ongoing aggressive care with a transition to comfort measures only * Questions answered to the best of my ability * Palliative care contact information provided For now, the daughter would like us to continue the current treatment but definitely wants DNR in place. She understands that ongoing risks include the pneumonia, more bleeding or swelling, other infections, another cardiac event, or complications of DVT. If the swelling subsides in the airway is open again and the patient has no evidence of hypoxic brain insult or other serious complications, the patient's daughter would likely want him to go to rehab and then see if he would be strong enough to live independently or may need to be moved up to her home in [place]. At this point in time, "we are going day by day." Assessment and Plan Disease Oriented Problem List: (1) airway obstruction, status post cricothyroidotomy (2) cardiac arrest following airway obstruction, successful resuscitation (3) denys-pharyngeal swelling, obstructing (4) tongue cancer 2010, status post surgery, chemotherapy, radiation (5) pneumonia on x-ray (6) osteoradionecrosis left side of mandible, surgery 12/14/16 (7) CAD (8) gout (9) DVT left arm, 1 week prior to admission (10) hypertension Symptom Scale: (1) pain 0-10 Scale: Unable to quantify (2) dyspnea 0-10 Scale: Unable to quantify Pertinent Non-Medical Issues Psychosocial: , lived alone, 3 children, 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 Spiritual: The patient is Jainism, and spirituality has been more important for him in recent months and years. A water plant maintenance mechanic has visited. Legal: The patient lacks capacity for decision-making at this time, but it is possible that he will regain that capacity. His daughter Adela is the designated health care surrogate. Ethical issues impacting care: None . Important Contacts Daughter/HCS: Adela Kurtis: [phone] . Prognosis The patient is likely to survive this hospitalization. Uncertainties that remain include the possibility of hypoxic brain insult, the severity of the developing pneumonia, and his overall debility. He has been declining for a couple years, with worsening weakness and weight loss. His prognosis is fair for surviving this hospitalization . Code Status: No Code Plan * DO NOT RESUSCITATE, per request of daughter/HCS * DECISION-MAKING: The patient lacks capacity for decision-making at this time , but it is possible that he will regain that capacity. His daughter Adela is the designated health care surrogate. * GOALS: For now, the daughter would like us to continue the current treatment but definitely wants DNR in place. She understands that ongoing risks include the pneumonia, more bleeding or swelling, other infections, another cardiac event, or complications of DVT. If the swelling subsides in the airway is open again and the patient has no evidence of hypoxic brain insult or other serious complications, the patient's daughter would likely want him to go to rehab and then see if he would be strong enough to live independently or may need to be moved up to her home in [place]. At this point in time, "we are going day by day." * SYMPTOMS: The patient had surprisingly little postop pain from his surgery last week and was not on any pain medicine at home. He has now undergone another procedure (cric), has undergone resuscitation, and is bedbound, and he may develop some musculoskeletal discomfort. He appears comfortable at this point on the propofol. * Palliative Care will continue to follow the patient during this hospitalization. . Time Spent Total Floor Time (mins): 79 Face to Face Time (mins): 20 >50% Counseling/Coord of Care: Yes (d/w RN) Thank you for the opportunity to participate in the care of Mr. Mejia. Attestation To help prompt me to consider important information that might be impacting today's encounter and assessment, information from prior notes written by myself or my colleagues may have been "brought forward" into today's note. My signature on this note, however, is an attestation that I personally performed the exam, history, and/or decision-making noted today, and, unless otherwise indicated, the interactions with patient, family, and staff as well as the review of records all occurred today. I also attest that the listed assessment and stated plan reflect my best clinical judgment today based on the combination of historical information, prior notes, and today's exam/ interactions. When time spent is documented, it refers only to time spent today by the signer, or if indicated, combined time spent today by collaborating physician/nurse practitioner. Sheron Altamirano MD Dec 20, 2016 14:03
[2016-12-20] MEDS ORDERED: VANCOMYCIN INJ 1,250 MG in SODIUM CHLOR 0.9% 250 ML INJ 250 ML IV SCH (15:00)
[2016-12-20 16:27] LABS: CREATINE KINASE 66 U/L (39-308)
--- NOTE | 2016-12-20 16:58 | HHI.PR ---
Subjective Remarks pt seen and examined this afternoon x 2 sedated/vent, makes purposeful movements when stimulate orally minimal oozing dark blood - serous/sanguinous Objective Vital Signs Date Time Temp Pulse Resp B/P Pulse Ox O2 Delivery O2 Flow Rate FiO2 12/20/16 14:53 100 40 12/20/16 13:00 87 14 127/65 100 12/20/16 12:00 87 12/20/16 12:00 40 12/20/16 12:00 97.6 87 14 122/67 100 12/20/16 11:17 100 40 12/20/16 11:00 85 16 121/59 100 12/20/16 10:00 88 12/20/16 10:00 88 15 123/61 100 12/20/16 09:30 100 40 12/20/16 09:28 40 12/20/16 09:00 98.3 96 17 126/67 100 12/20/16 09:00 99 12/20/16 08:50 98.3 101 14 131/66 99 12/20/16 08:26 100 40 12/20/16 08:15 96 13 103/59 100 Ventilator 12/20/16 08:02 100 50 12/20/16 08:00 103 20 116/58 100 Ventilator 12/20/16 07:56 104 20 105/57 100 Ventilator 12/20/16 07:45 112 20 104/56 100 Ventilator 12/20/16 07:42 115 21 112/56 100 Ventilator 12/20/16 07:40 119 20 106/57 100 Ventilator 12/20/16 07:35 123 20 108/59 100 12/20/16 06:55 100 15.00 100 12/20/16 06:14 89 20 228/98 100 Room Air 12/20/16 05:47 16 12/20/16 05:40 97.3 84 16 194/119 100 Room Air Result Diagram: 12/20/16 0640 12/20/16 0610 Objective Remarks no neck edema crico. site stable intraorally minimal oozing of left intraoral wound - appears old/ dark blood no elevation fom/tongue ct scan - hematoma/seroma noted left neck - air/fluid neck Assessment and Plan Assessment and Plan s/p left mandible reconstruction with palate - removal of mandible left side due to ORN thrombus pain/swelling left neck/mandible emergent airway in ed this am bedside procedure now 2%lidocaine 5 cc 18 gauge needle aspiration left neck approx 6 cc of dark blood - grape jelly color c/w hematoma continue supportive care will follow Onel Fisher DMD Dec 20, 2016 16:58
[2016-12-20] MEDS ORDERED: LIDOCAINE HCL 2% PF 5 ML VIAL I-DERMAL ONE (19:30)
[2016-12-20] MEDS: PROPOFOL 1000 MG/100 ML INJ 100 ML IV SCH (22:08)
[2016-12-21] VITALS (12 sets, daily range): BP systolic 113–149; BP diastolic 57–79; PULSE 64–93; RESP 14; TEMP 97.1–98.7; O2SAT 95–100
[2016-12-21] MEDS: RESP: ALBUTEROL 2.5 MG/IPRATROPIUM 0.5 MG NEB (SCH) NEB ×3 (02:50→16:52)
[2016-12-21] MEDS: PIPERACIL-TAZO 4.5 GM PREMIX 100 ML IV SCH ×2 (03:57→10:00)
[2016-12-21] MEDS ORDERED: CHLORHEXIDINE GLUCONATE 2 % 1 PACK (2 CLOTHS) TOP SCH (04:00)
[2016-12-21 05:59] LABS: AUTOMATED NEUTROPHIL # 7.4 TH/MM3 (1.8-7.7); BASOPHIL % 0.2 % (0.0-2.0); EOSINOPHIL % 0.4 % (0.0-4.0); HEMATOCRIT 22.6 % (39.0-51.0); HEMO FLAGS DIFF FINAL; LYMPH % 5.3 % (9.0-44.0); LYMPHOCYTE # 0.4 TH/MM3 (1.0-4.8); MEAN CELL VOLUME 84.2 FL (80.0-100.0); MEAN CORPUSCULAR HEMOGLOBIN 28.6 PG (27.0-34.0); MONO % 7.6 % (0.0-8.0); NEUT % 86.5 % (16.0-70.0); PLATELET COUNT 142 TH/MM3 (150-450); RED BLOOD COUNT 2.69 MIL/MM3 (4.50-5.90); RED CELL DISTRIBUTION WIDTH 15.1 % (11.6-17.2); WHITE BLOOD COUNT 8.6 TH/MM3 (4.0-11.0)
[2016-12-21] MEDS: INSULIN ASPART SUPPLEMENTAL SCALE SQ SCH ×2 (06:00)
[2016-12-21 06:25] LABS: ANION GAP 10 MEQ/L (5-15); AST (GOT) 19 U/L (15-37); BICARBONATE 24.2 MEQ/L (21.0-32.0); BLOOD UREA NITROGEN 22 MG/DL (7-18); CHLORIDE 107 MEQ/L (98-107); GLOMERULAR FILTRATION RATE 58 ML/MIN (>89); POTASSIUM 3.9 MEQ/L (3.5-5.1); SODIUM (NA) 141 MEQ/L (136-145)
[2016-12-21 06:29] LABS: ALKALINE PHOSPHATASE 65 U/L (45-117); ALT (GPT) 18 U/L (12-78); TOTAL BILIRUBIN ADULT 0.7 MG/DL (0.2-1.0)
--- NOTE | 2016-12-21 07:56 | HHI.PR ---
Subjective Remarks pt seen and examined this morning sedated/vent, increased htn episode overnight daughters/ nurse at bedside Objective Vital Signs Date Time Temp Pulse Resp B/P Pulse Ox O2 Delivery O2 Flow Rate FiO2 12/21/16 06:00 92 12/21/16 04:06 100 35 12/21/16 04:00 97.5 93 14 149/79 100 12/21/16 04:00 35 12/21/16 04:00 93 12/21/16 02:00 73 12/21/16 00:00 66 12/21/16 00:00 35 12/21/16 00:00 97.1 66 14 113/57 100 12/20/16 23:32 100 35 12/20/16 22:00 68 12/20/16 21:08 100 40 12/20/16 20:00 40 12/20/16 20:00 71 12/20/16 20:00 98.0 70 14 130/61 100 12/20/16 18:00 70 12/20/16 17:30 77 14 130/64 100 12/20/16 17:00 76 14 141/63 100 12/20/16 16:30 81 14 142/63 100 12/20/16 16:00 98.1 81 15 131/67 100 12/20/16 16:00 40 12/20/16 16:00 81 12/20/16 15:30 80 16 133/68 100 12/20/16 15:00 79 14 131/66 100 12/20/16 14:53 100 40 12/20/16 14:30 82 14 129/68 100 12/20/16 14:00 80 12/20/16 14:00 80 14 122/61 100 12/20/16 13:00 87 14 127/65 100 12/20/16 12:00 87 12/20/16 12:00 40 12/20/16 12:00 97.6 87 14 122/67 100 12/20/16 11:17 100 40 12/20/16 11:00 85 16 121/59 100 12/20/16 10:00 88 12/20/16 10:00 88 15 123/61 100 12/20/16 09:30 100 40 12/20/16 09:28 40 12/20/16 09:00 98.3 96 17 126/67 100 12/20/16 09:00 99 12/20/16 08:50 98.3 101 14 131/66 99 12/20/16 08:26 100 40 12/20/16 08:15 96 13 103/59 100 Ventilator 12/20/16 08:02 100 50 12/20/16 08:00 103 20 116/58 100 Ventilator 12/20/16 07:56 104 20 105/57 100 Ventilator I/O 12/20/16 12/20/16 12/20/16 12/21/16 12/21/16 12/21/16 07:00 15:00 23:00 07:00 15:00 23:00 Intake Total 809 ml 580 ml 587 ml Output Total 275 ml 200 ml 250 ml Balance 534 ml 380 ml 337 ml Intake IV Total 809 ml 580 ml 587 ml Output Urine Total 275 ml 200 ml 250 ml # Bowel Movements 0 0 Result Diagram: 12/21/16 0540 12/21/16 0540 Objective Remarks no neck edema - soft right side - no crepitus noted, l eft side neck wound margins well approximated, sutures intact crico. site stable intraorally no active heme noted no elevation fom/tongue ct scan - hematoma/seroma noted left neck - air/fluid neck Assessment and Plan Assessment and Plan s/p left mandible reconstruction with palate - removal of mandible left side due to ORN thrombus pain/swelling left neck/mandible emergent airway in ed hematoma palliative care pending daughters want hospice intervention - as per pt's previous request will follow Onel Fisher DMD Dec 21, 2016 07:56
[2016-12-21] MEDS: CHLORHEXIDINE 0.12% (ORAL KIT) 15 ML CUP MT SCH (08:00)
[2016-12-21] MEDS: PANTOPRAZOLE SODIUM 40 MG VIAL IV SCH (09:00)
[2016-12-21] MEDS: SODIUM CHLORIDE 0.9% FLUSH 10 ML FLUSH IV FLUSH SCH (09:00)
[2016-12-21] MEDS: SODIUM CHLOR 0.9% 1000 ML INJ 1,000 ML IV SCH (10:30)
[2016-12-21] MEDS: LORazepam 2 MG/ML VIAL IV PUSH SCH ×3 (11:00→18:25)
[2016-12-21] MEDS ORDERED: LORazepam 2 MG/ML VIAL IV PUSH PRN (11:00)
[2016-12-21] MEDS: MORPHINE SULFATE 8 MG/ML INJ IV PUSH SCH ×3 (11:00→18:25)
[2016-12-21] MEDS ORDERED: MORPHINE SULFATE 4 MG/ML INJ IV PUSH PRN (11:00)
--- NOTE | 2016-12-21 12:14 | HHI.HCPN ---
Reason for visit a. To assist with evaluation and management of symptoms including: Pain, dyspnea b. To assist medical decision maker(s) with: better understanding of current medical conditions; weighing benefits/burdens of medical treatment options; making medical treatment decisions. . Subjective/Interval History INTERVAL NOTE: The patient remains on a ventilator, FiO2 35%. He had some times of restlessness during the night, and the family noted a furrowed brow this morning. Lengthy discussion with family, see below. . . Family/friend interactions I met with the patient's 2 daughters, Adela and Ofelia, and [id number] Gemini. The 3 of them again reviewed the goals and wishes that the patient had expressed to them many times in the past, and they all feel certain that he would not want to continue aggressive treatment. They want us to transition to comfort care, engage hospice services, and keep him peaceful and comfortable until comes in the upcoming hours or days. . Advance Directives Living Will: Completed, but not made available Health Care Surrogate: Completed, but not made available Durable Power of Commercial Pest Control Representative: Never completed Advance Directive Specifics Health Care Surrogate(s): Daughter: Adela Hull . Significant change in goals: Transition to comfort, hospice . Objective Vital Signs Date Time Temp Pulse Resp B/P Pulse Ox O2 Delivery O2 Flow Rate FiO2 12/21/16 09:22 100 35 12/21/16 06:00 92 12/21/16 04:06 100 35 12/21/16 04:00 97.5 93 14 149/79 100 12/21/16 04:00 35 12/21/16 04:00 93 12/21/16 02:00 73 12/21/16 00:00 66 12/21/16 00:00 35 12/21/16 00:00 97.1 66 14 113/57 100 12/20/16 23:32 100 35 12/20/16 22:00 68 12/20/16 21:08 100 40 12/20/16 20:00 40 12/20/16 20:00 71 12/20/16 20:00 98.0 70 14 130/61 100 12/20/16 18:00 70 12/20/16 17:30 77 14 130/64 100 12/20/16 17:00 76 14 141/63 100 12/20/16 16:30 81 14 142/63 100 12/20/16 16:00 98.1 81 15 131/67 100 12/20/16 16:00 40 12/20/16 16:00 81 12/20/16 15:30 80 16 133/68 100 12/20/16 15:00 79 14 131/66 100 12/20/16 14:53 100 40 12/20/16 14:30 82 14 129/68 100 12/20/16 14:00 80 12/20/16 14:00 80 14 122/61 100 12/20/16 13:00 87 14 127/65 100 Intake & Output 12/21/16 12/21/16 06:59 18:59 Intake Total 1167 ml Output Total 450 ml Balance 717 ml Intake IV Total 1167 ml Output Urine Total 450 ml # Bowel Movements 0 Physical Exam CONSTITUTIONAL/GENERAL: This is an elderly patient, in no apparent distress. Sedated, in the C NECK: Trachea midline. Supple, nontender. No palpable thyroid enlargement or nodularity. CARDIOVASCULAR: Regular rate and rhythm without murmurs, gallops, or rubs. No JVD. Peripheral pulses symmetric. RESPIRATORY/CHEST: Symmetric, unlabored respirations. Clear to auscultation. Breath sounds equal bilaterally. No wheezes, rales, or rhonchi. GASTROINTESTINAL: Abdomen soft, non-tender, nondistended. No hepato-splenomegaly , or palpable masses. No guarding. Bowel sounds present. GENITOURINARY: Without palpable bladder distension. Spangler catheter in place. MUSCULOSKELETAL: Extremities without clubbing, cyanosis, or edema. No joint tenderness or effusion noted. No calf tenderness. No mottling or clubbing. NEUROLOGICAL: Sedated on propofol, occasionally moves toes PSYCHIATRIC: Unable to assess due to clinical condition and sedation . Diagnostic Tests Laboratory Laboratory Tests Test 12/20/16 12/20/16 12/20/16 12/20/16 06:10 06:40 07:55 09:45 Sodium Level 138 MEQ/L (136-145) Potassium Level 3.9 MEQ/L (3.5-5.1) Chloride Level 103 MEQ/L (98-107) Carbon Dioxide Level 26.4 MEQ/L (21.0-32.0) Anion Gap 9 MEQ/L (5-15) Blood Urea Nitrogen 22 MG/DL (7-18) Creatinine 1.13 MG/DL (0.60-1.30) Estimat Glomerular Filtration 62 ML/MIN (>89) Rate Random Glucose 114 MG/DL (74-106) Calcium Level 8.8 MG/DL (8.5-10.1) Total Creatine Kinase 66 U/L (39-308) Troponin I LESS THAN 0.02 NG/ML (0.02-0.05) White Blood Count 23.6 TH/MM3 (4.0-11.0) Red Blood Count 3.69 MIL/MM3 (4.50-5.90) Hemoglobin 10.6 GM/DL (13.0-17.0) Hematocrit 31.3 % (39.0-51.0) Mean Corpuscular Volume 84.7 FL (80.0-100.0) Mean Corpuscular Hemoglobin 28.6 PG (27.0-34.0) Mean Corpuscular Hemoglobin 33.7 % Concent (32.0-36.0) Red Cell Distribution Width 15.3 % (11.6-17.2) Platelet Count 345 TH/MM3 (150-450) Mean Platelet Volume 7.1 FL (7.0-11.0) Neutrophils (%) (Auto) 78.6 % (16.0-70.0) Lymphocytes (%) (Auto) 11.0 % (9.0-44.0) Monocytes (%) (Auto) 8.9 % (0.0-8.0) Eosinophils (%) (Auto) 1.2 % (0.0-4.0) Basophils (%) (Auto) 0.3 % (0.0-2.0) Neutrophils # (Auto) 18.5 TH/MM3 (1.8-7.7) Lymphocytes # (Auto) 2.6 TH/MM3 (1.0-4.8) Monocytes # (Auto) 2.1 TH/MM3 (0-0.9) Eosinophils # (Auto) 0.3 TH/MM3 (0-0.4) Basophils # (Auto) 0.1 TH/MM3 (0-0.2) CBC Comment DIFF FINAL Differential Comment Prothrombin Time 11.5 SEC (9.8-11.6) Prothromb Time International 1.0 RATIO Ratio Activated Partial 30.8 SEC Thromboplast Time (24.3-30.1) Blood Gas Puncture Site LT RADIAL Blood Gas Patient Temperature 98.6 Blood Gas HCO3 21 mmol/L (22-26) Blood Gas Base Excess -2.9 mmol/L (-2-2) Blood Gas Oxygen Saturation 98 % (90-100) Arterial Blood pH 7.40 (7.380-7.420) Arterial Blood Partial 35 mmHg (38-42) Pressure CO2 Arterial Blood Partial 167 mmHG Pressure O2 (61-120) Arterial Blood Oxygen Content 12.6 Vol % (12.0-20.0) Arterial Blood 1.3 % (0-4) Carboxyhemoglobin Arterial Blood Methemoglobin 0.4 % (0-2) Blood Gas Hemoglobin 8.9 G/DL (12.0-16.0) Oxygen Delivery Device VENTILATOR Blood Gas Ventilator Setting Blood Gas Inspired Oxygen 50 % Nasal Screen MRSA (PCR) MRSA NOT DETECTED (NOT DETECT) Test 12/20/16 12/21/16 17:05 05:40 Total Creatine Kinase 98 U/L (39-308) Troponin I 0.58 NG/ML (0.02-0.05) White Blood Count 8.6 TH/MM3 (4.0-11.0) Red Blood Count 2.69 MIL/MM3 (4.50-5.90) Hemoglobin 7.7 GM/DL (13.0-17.0) Hematocrit 22.6 % (39.0-51.0) Mean Corpuscular Volume 84.2 FL (80.0-100.0) Mean Corpuscular Hemoglobin 28.6 PG (27.0-34.0) Mean Corpuscular Hemoglobin 34.0 % Concent (32.0-36.0) Red Cell Distribution Width 15.1 % (11.6-17.2) Platelet Count 142 TH/MM3 (150-450) Mean Platelet Volume 6.2 FL (7.0-11.0) Neutrophils (%) (Auto) 86.5 % (16.0-70.0) Lymphocytes (%) (Auto) 5.3 % (9.0-44.0) Monocytes (%) (Auto) 7.6 % (0.0-8.0) Eosinophils (%) (Auto) 0.4 % (0.0-4.0) Basophils (%) (Auto) 0.2 % (0.0-2.0) Neutrophils # (Auto) 7.4 TH/MM3 (1.8-7.7) Lymphocytes # (Auto) 0.4 TH/MM3 (1.0-4.8) Monocytes # (Auto) 0.7 TH/MM3 (0-0.9) Eosinophils # (Auto) 0.0 TH/MM3 (0-0.4) Basophils # (Auto) 0.0 TH/MM3 (0-0.2) CBC Comment DIFF FINAL Differential Comment Sodium Level 141 MEQ/L (136-145) Potassium Level 3.9 MEQ/L (3.5-5.1) Chloride Level 107 MEQ/L (98-107) Carbon Dioxide Level 24.2 MEQ/L (21.0-32.0) Anion Gap 10 MEQ/L (5-15) Blood Urea Nitrogen 22 MG/DL (7-18) Creatinine 1.20 MG/DL (0.60-1.30) Estimat Glomerular Filtration 58 ML/MIN (>89) Rate Random Glucose 129 MG/DL (74-106) Calcium Level 7.9 MG/DL (8.5-10.1) Total Bilirubin 0.7 MG/DL (0.2-1.0) Aspartate Amino Transf 19 U/L (15-37) (AST/SGOT) Alanine Aminotransferase 18 U/L (12-78) (ALT/SGPT) Alkaline Phosphatase 65 U/L (45-117) Total Protein 5.1 GM/DL (6.4-8.2) Albumin 2.0 GM/DL (3.4-5.0) Result Diagram: 12/21/16 0540 12/21/16 0540 Microbiology Microbiology Date/Time Procedure Status Source Growth 12/20/16 17:05 Aerobic Blood Culture - Preliminary Resulted Blood Peripheral NO GROWTH IN 1 DAY 12/20/16 17:05 Anaerobic Blood Culture - Preliminary Resulted Blood Peripheral NO GROWTH IN 1 DAY Imaging Last Impressions Chest X-Ray 12/20/16 0751 Signed Impressions: Service Date/Time: Tuesday, December 20, 2016 07:57 - CONCLUSION: 1. Bilateral perihilar airspace consolidation and left basilar opacity. Differential diagnosis includes aspiration and pneumonia. 2. Tracheostomy in satisfactory position. Rey Bruno MD Neck CT 12/20/16 0000 Signed Impressions: Service Date/Time: Tuesday, December 20, 2016 08:25 - CONCLUSION: 1. Postsurgical changes from partial left mandibular resection with plate and screw fixation. 2. Complex air-fluid collection in the left neck extending from the mandibular region inferiorly with measurements given above. This could represent postsurgical change with some seroma or hemorrhage. Cannot exclude infection. There is fairly extensive dissection of air into the right neck as well including the deep soft tissues around the right parapharyngeal space. 3. Tracheostomy in satisfactory position. Rey Bruno MD Procedures Cricothyroidotomy 12/20/16 . 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 Spiritual: The patient is [employer], and spirituality has been more important for him in recent months and years. A computer operations technician has visited. Legal: The patient lacks capacity for decision-making at this time, but it is possible that he will regain that capacity. His daughter Adela is the designated health care surrogate. Ethical issues impacting care: None . Important Contacts Daughter/HCS: Adela Kurtis: [phone] . Prognosis The patient is likely to survive this hospitalization. Uncertainties that remain include the possibility of hypoxic brain insult, the severity of the developing pneumonia, and his overall debility. He has been declining for a couple years, with worsening weakness and weight loss. His prognosis is fair for surviving this hospitalization . Code Status: No Code Plan * DO NOT RESUSCITATE, per request of daughter/HCS 12/20/16 * DECISION-MAKING: The patient lacks capacity for decision-making, and his daughter Adela is the designated health care surrogate. * GOALS: I met with the patient's 2 daughters, Adela and Ofelia, and daughter-in -law Gemini. The 3 of them again reviewed the goals and wishes that the patient had expressed to them many times in the past, and they all feel certain that he would not want to continue aggressive treatment. They want us to transition to comfort care, engage hospice services, and keep him peaceful and comfortable until comes in the upcoming hours or days. * Hospice consult placed. The patient will likely be transitioned to the [facility] while still on the current ventilator settings. The ventilator itself can be removed with adequate comfort medicines in place, and the patient can breathe through his tube. The cric tube will not be removed because of the risk of acute airway obstruction. * SYMPTOMS: The family wants to be absolutely certain that he has no pain, dyspnea, fear, anxiety, etc. They have requested that we initiate comfort medicines now, and I have placed orders for scheduled and PRN morphine and lorazepam to begin now. * Palliative Care will continue to follow the patient during this hospitalization. . Time Spent Total Floor Time (mins): 44 Face to Face Time (mins): 11 >50% Counseling/Coord of Care: Yes (d/w Dr. Lopes) Attestation To help prompt me to consider important information that might be impacting today's encounter and assessment, information from prior notes written by myself or my colleagues may have been "brought forward" into today's note. My signature on this note, however, is an attestation that I personally performed the exam, history, and/or decision-making noted today, and, unless otherwise indicated, the interactions with patient, family, and staff as well as the review of records all occurred today. I also attest that the listed assessment and stated plan reflect my best clinical judgment today based on the combination of historical information, prior notes, and today's exam/ interactions. When time spent is documented, it refers only to time spent today by the signer, or if indicated, combined time spent today by collaborating physician/nurse practitioner. Sheron Altamirano MD Dec 21, 2016 12:14
--- NOTE | 2016-12-21 15:48 | HHI.CCPN ---
Subjective Remarks/Hospital Course 12/20: 81-year-old male complaining of pain and swelling and bleeding from the left side of the jaw. Patient has history of osteoradionecrosis of the mandible with pathologic fracture of the mandible. Patient status post ORIF left mandible on December 14. Patient developed nonocclusive thrombus on the left arm. Patient was put on heparin drip and subsequently discharged home on Eliquis 5 mg twice a day. Patient was discharged home December 18. Patient has been taking Eliquis as directed. Patient has been doing well until this morning when he started having increasing pain swelling and bleeding from the left gum. Patient denied any shortness of breath. Patient states that the pain was severe sharp pain localized to the left side of the jaw. Patient denies any pain radiation. On a scale of 1-10 the pain is a 10. Patient was sent for CT of facial bones however while in CAT scan developed difficulty with his breathing and was brought back to the emergency room following which he was felt to have a compromised airway. He went into a cardiac arrest and had CPR/ ACLS for 7 minutes prior to return of spontaneous circulation. He underwent an emergent cricothyrotomy during ACLS and was placed on mechanical ventilation. Patient was also evaluated by Dr. Fisher in the ER. He was accepted for admission by critical care medicine service. I evaluated the patient immediately on being notified while he was in the ER. At that time he was sedated with propofol, on mechanical ventilation via cricothyrotomy. Patient's daughter was at the bedside and was updated regarding events by myself ER physician as well as Dr. Fisher. She did not want any further invasive procedures and wish to change CODE STATUS to DNR status. History was obtained by reviewing records and discussion with Dr. Winchester, Dr. Fisher, patient started as well as ER nursing staff. 12/21: Patient remains sedated on mechanical ventilation. Family has elected for comfort measures and wished to transfer to hospice per my discussion with Dr. Altamirano. Objective Vital Signs Date Time Temp Pulse Resp B/P Pulse Ox O2 Delivery O2 Flow Rate FiO2 12/21/16 12:13 97 35 12/21/16 12:00 98.5 68 14 133/57 12/20/16 08:15 Ventilator 12/20/16 06:55 15.00 Intake and Output 12/20/16 12/20/16 12/20/16 07:59 15:59 23:59 Intake Total 809 ml 580 ml Output Total 275 ml 200 ml Balance 534 ml 380 ml Result Diagram: 12/21/16 0540 12/21/16539 Imaging Awaiting chest x-ray and CT face and soft tissues of neck Objective Remarks HEENT/ Neuro: Sedated, orally intubated, Pallor present, no icterus, tongue/ mucosa moist, swelling around left side of face/ jaw, sutures over left jaw ORIF site noted. Neck: No JVD Chest/Pulm: on mech vent, good air entry bilaterally, scattered rhonchi, no wheezing or crackles. CVS: S1-S2 regular, no murmur GI/abdomen: soft, nontender, bowel sounds sluggish Extremities: warm bilaterally, no edema A/P Assessment and Plan 81-year-old male with: Cardiac arrest status post CPR Postop Left sided jaw swelling Compromised airway requiring emergent cricothyrotomy Acute respiratory failure on mechanical ventilation Suspected aspiration Recent left approximately DVT Leukocytosis Hypertension status post recent ORIF for osteonecrosis of mandible 12/15 Remote history of CABG and porcine valve replacement. Plan: Neuro: Sedation with propofol, daily sedation vacation, follow neuro checks. 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 Cardiovascular: Cardiac arrest status post CPR. Watch for hypotension. Old metoprolol at this time. Labetalol when necessary for hypertension if needed. Hold Eliquis in view of emergent cricothyrotomy and bleeding from oral cavity noted earlier. Pulmonary: On mechanical ventilation, vent bundle, bronchodilators as needed. Cricothyrotomy in place. Patient's daughter does not want any further invasive procedures including tracheostomy. GI/liver: Nothing by mouth for now. Renal/: IV hydration, strict intake output, monitor and replete elect lites, follow BUN/creatinine. Heme: Follow CBC. Eliquis held currently in view of bleeding from oral cavity as well as emergent cricothyrotomy. Known DVT right upper extremity. Patient is at risk for thromboembolic events. Daughter aware. Endocrine: SSI for glycemic control if needed. ID: Leukocytosis noted. Unclear etiology. We'll obtain marquez cultures and initiate empiric antibiotic coverage with IV Zosyn. Suspect aspiration event prior to cardiac arrest. Prophylaxis: PPI/SCDs. We'll consider subcutaneous heparin starting tomorrow if no bleeding from cricothyrotomy site and if okay with OMFS. Discussed extensively with patient's daughter who does not want any further invasive procedures and wish to change CODE STATUS to DNR. Palliative care team following to assist with deciding goals of therapy. Family has elected to transition to comfort measures. Hospice being consulted by Dr. Altamirano. Plan to transfer patient to hospice facility on mechanical ventilation and subsequently he will be disconnected from ventilation and there. Ativan/morphine as needed for pain and anxiety ordered by palliative care service. Discussed with Dr. Fisher who is aware. Condition critical Time spent on critical care excluding procedures: 30 minutes Julius Lopes MD Dec 21, 2016 15:47
[2016-12-21] MEDS: PROPOFOL 1000 MG/100 ML INJ 100 ML IV SCH (16:43)
[2016-12-23] MEDS ORDERED: PHARMACY ORDERED LAB ONE (14:45)
== END 2016-12-21 20:10 | disposition hospice, inpatient (51) | DRG 4 ==
LOC: HOR 05:37 → NEDA 06:42 → HIME 08:30
PROVIDERS: ADMIT Internal Medicine Critical Care Medicine; ATTEND Internal Medicine Critical Care Medicine
PROC: 0B110F4 Bypass Trachea to Cutaneous with Tracheostomy Device, Open Approach (ICD-10-PCS; principal; 2016-12-20)
PROC: 5A12012 Performance of Cardiac Output, Single, Manual (ICD-10-PCS; 2016-12-20)
PROC: 5A1945Z Respiratory Ventilation, 24-96 Consecutive Hours (ICD-10-PCS; 2016-12-20)
PROC: 06HY33Z Insertion of Infusion Device into Lower Vein, Percutaneous Approach (ICD-10-PCS; 2016-12-20)
PROC: 0J943ZZ Drainage of Right Neck Subcutaneous Tissue and Fascia, Percutaneous Approach (ICD-10-PCS; 2016-12-20)
DX: M96.89 Other intraoperative and postprocedural complications and disorders of the musculoskeletal system (principal); I46.9 Cardiac arrest, cause unspecified; J96.00 Acute respiratory failure, unspecified whether with hypoxia or hypercapnia; I95.9 Hypotension, unspecified; G93.1 Anoxic brain damage, not elsewhere classified; Z95.1 Presence of aortocoronary bypass graft; R00.1 Bradycardia, unspecified; I25.10 Atherosclerotic heart disease of native coronary artery without angina pectoris; I10 Essential (primary) hypertension; Z95.3 Presence of xenogenic heart valve; Z85.21 Personal history of malignant neoplasm of larynx; Z92.21 Personal history of antineoplastic chemotherapy; Z92.3 Personal history of irradiation; Z66 Do not resuscitate; Z86.718 Personal history of other venous thrombosis and embolism; Y83.8 Other surgical procedures as the cause of abnormal reaction of the patient, or of later complication, without mention of misadventure at the time of the procedure; R60.0 Localized edema; M10.9 Gout, unspecified; Z87.891 Personal history of nicotine dependence; L76.32 Postprocedural hematoma of skin and subcutaneous tissue following other procedure; Z51.5 Encounter for palliative care
CPT/HCPCS: 31605; 36556; 36600; 70490; 71010; 80048; 80053; 82550; 82805; 82948; 84484; 85025; 85610; 85730; 87040; 87641; 92950; 94002; 94003; 94640; 94664; 96374; 96375; C9113; C9132; J0171; J0461; J2060; J2270; J2543; J3010; J3370; J7030; J7050